=== PATIENT | female | born 1970 | race Caucasian/White ===

== ENCOUNTER 2019-05-07 09:48 | Observation (INO) | payer OTHER ==
[~2019-05-07] VITALS: Ht 170.2 cm; Wt 147.4 kg
[~2019-05-07 09:48] MED LIST: ALBU90I INH; ALBU90OI61 INH; AZIT250 PO; Bactrim Ds Tab1 EACH PO; CEPH500 PO; CYCL10 PO; FURO40 PO; HYDACE5325 PO; IBUP400 PO; Keflex500 MG PO; LEVO750 PO; Metformin HCl1000 MG PO; Metoprolol Tart25 MG PO; NEOPOLHCSU RIGHTEAR; OXYB5 PO; PREDNISONE PO; Percocet 5-3251 EACH PO; SULTRIDS PO; TRAM50 PO; TRAZ50 PO; Zofran Odt8 MG SL
[2019-05-07] MEDS ORDERED: Cymbalta60 MG PO (10:35)
[2019-05-07] MEDS ORDERED: D3-20002000 UNIT PO (10:35)
[2019-05-07 10:52] LABS: BASOPHILS ABSOLUTE AUTO 0.02 K/mm3 (0.00-0.23); BASOPHILS PERCENT AUTO 0 % (0-2); EOSINOPHILS ABSOLUTE AUTO 0.06 K/mm3 (0.00-0.68); EOSINOPHILS PERCENT AUTO 1 % (0-6); IMMATURE GRAN ABSOLUTE AUTO 0.07 K/mm3 (0.00-0.10); IMMATURE GRAN PERCENT AUTO 1 % (0-1); LYMPHOCYTES ABSOLUTE AUTO 2.21 K/mm3 (0.84-5.20); LYMPHOCYTES PERCENT AUTO 25 % (21-46); MONOCYTES ABSOLUTE AUTO 0.78 K/mm3 (0.16-1.47); MONOCYTES PERCENT AUTO 9 % (4-13); Mean Corpuscular HGB 29.1 pg (26.0-34.0); Mean Corpuscular HGB Conc 29.4 g/dL (31.5-36.5); Mean Corpuscular Volume 99 fL (80-100); Mean Platelet Volume 10.9 fL (9.1-12.4); NEUTROPHILS ABSOLUTE AUTO 5.87 K/mm3 (1.96-9.15); NEUTROPHILS PERCENT AUTO 65 % (41-73); NRBC ABSOLUTE 0.16 K/mm3 (0.00-0.02); NRBC Auto 1.8 /100 WBC (0.0-0.2); Platelet Count 201 K/mm3 (150-400); RDW Coefficient Variation 19.3 % (11.7-14.2); RDW Standard Deviation 67.6 fL (35.1-46.3); Red Blood Cell Count 5.15 M/mm3 (3.80-5.20); White Blood Cell Count 9.01 K/mm3 (4.00-11.30)
[2019-05-07 11:08] LABS: Alanine Aminotransfer (ALT/SGP 16 U/L (12-78); Albumin/Globulin Ratio 0.8 (0.8-1.8); Alk Phos 71 U/L (50-136); Anion Gap 4 mmol/L (6-16); Aspartate Aminotrans (AST/SGOT 11 U/L (12-37); Bilirubin, Total 0.4 mg/dL (0.1-1.0); Blood Urea Nitrogen 11 mg/dL (8-24); Bun/Creatinine Ratio 13.9 (12.0-20.0); CO2, Blood 33 mmol/L (21-32); Calcium, Blood 8.8 mg/dL (8.5-10.1); Chloride, Blood 105 mmol/L (98-108); Creatinine, Blood 0.79 mg/dL (0.40-1.00); Glomerular Filtration Rate >60 (60-); Glucose, Blood 113 mg/dL (70-99); Potassium, Blood 4.4 mmol/L (3.5-5.5); Sodium, Blood 142 mmol/L (136-145); Troponin I <0.015 ng/mL (0.000-0.040)
[2019-05-07 17:58] LABS: Source, Urine Clean Catch
[2019-05-07 18:02] LABS: Bilirubin, Urine Neg (Neg); Blood, Urine 1+ (Neg); Glucose Qualitative, Urine Neg (Neg); Ketones, Urine 1+ (Neg); Leukocyte Esterase, Urine 3+ (Neg); Nitrite, Urine Neg (Neg); Protein, Urine Neg (Neg); Urobilinogen, Urine NORM (Normal)
[2019-05-07 18:19] LABS: Appearance, Urine Hazy (Clear); Color, Urine Yellow (P-Yellow)
[2019-05-07 18:24] LABS: Bacteria Many /hpf; Red Blood Cells, Urine Not Seen /hpf (0-2); Squamous Epithelial Cells Many /hpf (Few); White Blood Cells, Urine 25-50 /hpf (0-5)
--- NOTE | 2019-05-07 18:29 | NUR ---
SHIFT SUMMARY PT IS A NEW ADMISSION THIS SHIFT. NO COMPLAINTS OF PAIN OR SHORTNESS OF BREATH AT THIS TIME. PT VOIDING WITHOUT DIFFICULTY. URINE SAMPLE SENT. PT ON 2L OXYGEN VIA NC AND SATS ARE IN 90'S. NO DISTRESS AT THIS TIME. PT HAS NO REQUESTS OR COMPLAINTS AT THIS TIME. CALL LIGHT IN REACH. WILL CONTINUE TO MONITOR AND REPORT TO ONCOMING RN.
--- NOTE | 2019-05-07 18:33 | NUR ---
BLOOD PRESSURES PT HAD BLOOD PRESSURES RECORDED FROM ED AFTER PT WAS TO THE FLOOR AND STAFF ON THIS FLOOR TOOK HER BP. THIS RN CALLED ED AND ASKED THEM TO CHANGE THE TIME TO THE ACCURATE TIME IT WAS TAKEN.
[2019-05-07 18:55] LABS: CPK Creatine Kinase 67 U/L (26-193); Troponin I <0.015 ng/mL (0.000-0.040)
--- NOTE | 2019-05-07 22:45 | NUR ---
WHILE PT WAS ON CPAP THROUGH THE NIGHT, O2 SATS DROPPED DOWN TO THE 60s AT ONE POINT. PT HAD MOVED MASK IN INCOORECT POSITION, NOT ALLOWING FOR ADEQUATE AIRFLOW. MASK POSITION CORRECTED AND PT UP TO 70s. RT CALLED AND O2 TO CPAP WAS RAISED TO 15 L. PT O2 SATS MAINTAINING 88-90% ON CPAP.
[2019-05-08 02:40] LABS: Hematocrit 50.3 % (33.0-51.0); Hemoglobin 14.5 g/dL (11.5-16.0); Mean Corpuscular HGB 29.5 pg (26.0-34.0); Mean Corpuscular HGB Conc 28.8 g/dL (31.5-36.5); Mean Platelet Volume 10.7 fL (9.1-12.4); NRBC ABSOLUTE 0.07 K/mm3 (0.00-0.02); NRBC Auto 0.9 /100 WBC (0.0-0.2); Platelet Count 171 K/mm3 (150-400); RDW Coefficient Variation 19.3 % (11.7-14.2); Red Blood Cell Count 4.92 M/mm3 (3.80-5.20); White Blood Cell Count 7.75 K/mm3 (4.00-11.30)
[2019-05-08 02:41] LABS: Mean Corpuscular Volume 102 fL (80-100)
[2019-05-08 03:02] LABS: CPK Creatine Kinase 45 U/L (26-193); Troponin I <0.015 ng/mL (0.000-0.040)
[2019-05-08 03:18] LABS: Alanine Aminotransfer (ALT/SGP 15 U/L (12-78); Albumin, Blood 2.7 g/dL (3.4-5.0); Albumin/Globulin Ratio 0.7 (0.8-1.8); Alk Phos 62 U/L (50-136); Anion Gap 1 mmol/L (6-16); Aspartate Aminotrans (AST/SGOT 11 U/L (12-37); Bilirubin, Total 0.4 mg/dL (0.1-1.0); Blood Urea Nitrogen 13 mg/dL (8-24); Bun/Creatinine Ratio 13.1 (12.0-20.0); CO2, Blood 38 mmol/L (21-32); Calcium, Blood 8.4 mg/dL (8.5-10.1); Chloride, Blood 105 mmol/L (98-108); Globulin, Blood 3.8 g/dL (2.2-4.0); Glomerular Filtration Rate >60 (60-); Glucose, Blood 102 mg/dL (70-99); Potassium, Blood 4.1 mmol/L (3.5-5.5); Sodium, Blood 144 mmol/L (136-145); Total Protein, Blood 6.5 g/dL (6.4-8.2)
--- NOTE | 2019-05-08 04:02 | NUR ---
bEHAVIOR PT SCREAMING AND CURSING AT STAFF THIS AM. ASSISTED PT TO BATHROOM, WHERE SHE CONTINUED TO CURSE AND YELL AT STAFF. "SHUT THE F UP" PT STATED WHEN REMINDED THIS RN AND THE RENAL DIETITIAN ARE TO BE TREATED WITH RESPECT. ABOUT 10 MINS LATER, PT APOLOGIZED FOR BEHAVIOR.
--- NOTE | 2019-05-08 04:16 | NUR ---
INCREASED OXYGEN DEMANDS PT IS REQUIRING 2-7 L VIA OXYMIZER TO MAINTAINE O2 SATS >90%. WHEN RESTING IN BED, PT CAN BE WEENED DOWN TO 2-3L. HOWEVER, DURING AMBULATION AND AFTER AMBULATION, PT HAS REQUIRED 7L TO RAISE O2 SATS.
--- NOTE | 2019-05-08 06:03 | NUR ---
RT SUGGESTING PT DO SLEEP STUDY. WILL PASS OFF IN DAYSHIFT RN REPORT.
--- NOTE | 2019-05-08 06:13 | NUR ---
SHIFT SUMMARY PT HAS HAD VARYING OXYGEN NEEDS TONIGHT, DEMAND ON ACTIVITY. O2 NEEDS RANGE FROM 2-7 L VIA OXYMIZER, SEE PRIOR NOTE. PT RESTING IN BED AT THIS TIME AN CURRENTLY REQUIRING 4L VIA OXYMIZER TO MAINTAIN O2SATS > 90%. ON CPAP AT NIGHT WITH FREQUENT NEED FOR INCREASE 02 THEN WELL, RT RECOMMENDING SLEEP STUDY. TELE IN PLACE, NSR @ 80, NO ACUTE TELEMETRY EVENTS. SCABS AND ABRASIONS NOTED TO BLE. SKIN FOLDS NOTED TO BE CRACKED/RAW. PT DENIES ANY PAIN. WILL CONT TO MONITOR AND PROVIDE CARE UNTIL PRESUMED BY ONCOMING RN.
--- NOTE | 2019-05-08 12:59 | NUR ---
PT LEFT AMA PT LEFT AMA AT 1300. PT NOT IN STABLE CONDITION. PT HAS BEEN REQUIRING 3L O2 VIA OXIMIZER THROUGHOUT SHIFT. PT UPSET THAT PT DOG WAS ASKED TO LEAVE AFTER BARKING & RUNNING TOWARD STAFF. BARBER CALLED & [facility]ER[facility]. PT STATED THAT WASN'T AN OPTION. DOG BARKED AT DR. MAKING HIM UNABLE TO ASSESS PT. PT STATED THAT SHE WANTS TO LEAVE NOW. WHEN MEAT SOAKER, PRKAASH TRIED TO ACCOMIDATE PT, PT BECAME ARGREE & DEMANDED TO LEAVE THE HOSPITAL NOW. PT WAS EDUCATED BY THIS RN THAT THERE ARE NO BENEFITS TO LEAVING THE HOSPITAL NOW & EDUCATED ON THE RISKS. PT IV REMOVED & INTACT. TAXI CALLED FOR PT. PT WHEELED OUT BY AIDE. DR. NEELY NOTIFIED.
[2019-05-08 14:48] LABS: Adenovirus F 40/41 Not Detected (NOT DETECT); Astrovirus Not Detected (NOT DETECT); Campylobacter Sp Not Detected (NOT DETECT); Cryptosporidium Not Detected (NOT DETECT); Cyclospora Cayetanensis Not Detected (NOT DETECT); E. Coli O157 Not Detected (NOT DETECT); Entamoeba Histolytica Not Detected (NOT DETECT); Enteroaggregative E. coli-EAEC Not Detected (NOT DETECT); Enteropathogenic E. coli-EPEC Not Detected (NOT DETECT); Enterotoxigenic E. coli-ETEC Not Detected (NOT DETECT); Giardia Lamblia Not Detected (NOT DETECT); Norovirus GI/GII Not Detected (NOT DETECT); Plesiomonas Shigelloides Not Detected (NOT DETECT); Rotavirus A Not Detected (NOT DETECT); Salmonella Sp Not Detected (NOT DETECT); Sapovirus Not Detected (NOT DETECT); Shiga Toxin-prod E. coli-STEC Not Detected (NOT DETECT); Shigella/Enteroin E. coli-EIEC Not Detected (NOT DETECT); Vibrio Cholerae Not Detected (NOT DETECT); Vibrio Sp Not Detected (NOT DETECT); Yersinia Enterocolitica Not Detected (NOT DETECT)
--- NOTE | 2019-05-09 09:07 | NUR ---
PROVIDER CORRECTION FOR HOME O2 EVAL ORDER.
== END 2019-05-08 13:01 | disposition left against medical advice (07) ==
LOC: ER 09:48 → MEDS 09:49
PROVIDERS: Emergency Medicine; ADMIT Internal Medicine
DX: J81.0 Acute pulmonary edema (principal); J96.01 Acute respiratory failure with hypoxia; E66.01 Morbid (severe) obesity due to excess calories; F17.210 Nicotine dependence, cigarettes, uncomplicated; I10 Essential (primary) hypertension; Z59.0 Homelessness; Z79.899 Other long term (current) drug therapy; Z88.0 Allergy status to penicillin; Z68.43 Body mass index [BMI] 50.0-59.9, adult
CPT/HCPCS: 0097U; 36415; 71046; 80053; 81001; 82550; 83880; 84145; 84484; 85025; 85027; 87077; 87086; 87186; 93005; 93010; 94640; 94660; 94762; 96365; 96372; 96374; 96375; 96376; 99285-25; C8929; G0378; J0696; J1650; J1940; Q9957

== ENCOUNTER 2019-05-08 17:26 | Emergency (ER) | payer OTHER ==
[~2019-05-08] VITALS: Ht 170.2 cm; Wt 204.1 kg
[~2019-05-08 17:26] MED LIST changes: +Cymbalta60 MG PO; +D3-20002000 UNIT PO
== END 2019-05-08 18:00 | disposition home or self-care (01) ==
LOC: ER 17:26
DX: F41.9 Anxiety disorder, unspecified (principal); F17.210 Nicotine dependence, cigarettes, uncomplicated; Z59.0 Homelessness; Z88.0 Allergy status to penicillin; Z79.899 Other long term (current) drug therapy
CPT/HCPCS: 99283

== ENCOUNTER 2019-05-26 07:07 | Inpatient (IN) | payer OTHER ==
[~2019-05-26] VITALS: Ht 165.1 cm; Wt 226.0 kg
[2019-05-26 07:29] LABS: PCO2 Arterial 105 mmHg (35-45); PO2 Arterial 49.2 mmHg (80-100); pH Blood Arterial 7.14 (7.35-7.45)
[2019-05-26 07:40] LABS: Calcium, Ionized (POC) 1.06 mmol/L (1.10-1.46); Chloride (POC) 104 mmol/L (98-108); Creatinine (POC) 1.3 mg/dL (0.6-1.0); Glucose (ISTAT POC) 144 mg/dL (70-99); Hemoglobin (POC) 17.3 g/dL (12.0-16.0); Potassium (POC) 4.3 mmol/L (3.5-5.5); Sodium (POC) 141 mmol/L (135-148); Total CO2 (POC) 32 mmol/L (21-32)
[2019-05-26 08:02] LABS: BASOPHILS ABSOLUTE AUTO 0.02 K/mm3 (0.00-0.23); BASOPHILS PERCENT AUTO 0 % (0-2); EOSINOPHILS ABSOLUTE AUTO 0.09 K/mm3 (0.00-0.68); EOSINOPHILS PERCENT AUTO 1 % (0-6); Hemoglobin 14.7 g/dL (11.5-16.0); IMMATURE GRAN ABSOLUTE AUTO 0.02 K/mm3 (0.00-0.10); IMMATURE GRAN PERCENT AUTO 0 % (0-1); LYMPHOCYTES ABSOLUTE AUTO 2.43 K/mm3 (0.84-5.20); LYMPHOCYTES PERCENT AUTO 28 % (21-46); MONOCYTES ABSOLUTE AUTO 0.86 K/mm3 (0.16-1.47); MONOCYTES PERCENT AUTO 10 % (4-13); Mean Corpuscular HGB 29.3 pg (26.0-34.0); Mean Corpuscular HGB Conc 27.7 g/dL (31.5-36.5); Mean Corpuscular Volume 106 fL (80-100); Mean Platelet Volume 11.6 fL (9.1-12.4); NEUTROPHILS PERCENT AUTO 61 % (41-73); NRBC ABSOLUTE 0.11 K/mm3 (0.00-0.02); NRBC Auto 1.3 /100 WBC (0.0-0.2); Platelet Count 186 K/mm3 (150-400); RDW Coefficient Variation 20.2 % (11.7-14.2); RDW Standard Deviation 76.9 fL (35.1-46.3); Red Blood Cell Count 5.02 M/mm3 (3.80-5.20); White Blood Cell Count 8.72 K/mm3 (4.00-11.30)
[2019-05-26 08:09] LABS: Albumin, Blood 3.1 g/dL (3.4-5.0); Albumin/Globulin Ratio 0.8 (0.8-1.8); Bilirubin, Total 0.4 mg/dL (0.1-1.0); Bun/Creatinine Ratio 19.2 (12.0-20.0); Calcium, Blood 8.6 mg/dL (8.5-10.1); Creatine Kinase MB 1.9 ng/mL (0.0-3.6); Creatine Kinase MB Index 2.8 (0.0-4.0); Creatinine, Blood 1.25 mg/dL (0.40-1.00); Globulin, Blood 3.8 g/dL (2.2-4.0); Potassium, Blood 4.4 mmol/L (3.5-5.5); Total Protein, Blood 6.9 g/dL (6.4-8.2); Troponin I 0.161 ng/mL (0.000-0.040)
[2019-05-26 08:10] LABS: PCO2 Arterial 88.9 mmHg (35-45); PO2 Arterial 98.6 mmHg (80-100)
--- NOTE | 2019-05-26 10:03 | NUR ---
REPORT FROM JAYSON GOMEZ IN ED.
--- NOTE | 2019-05-26 12:30 | NUR ---
FIO2 INCREASED TO 55%
--- NOTE | 2019-05-26 13:40 | NUR ---
RESP THERAPIST TO ROOM FOR REPEAT ABG
[2019-05-26 13:47] LABS: PCO2 Arterial 72.3 mmHg (35-45); PO2 Arterial 96.4 mmHg (80-100); pH Blood Arterial 7.28 (7.35-7.45)
--- NOTE | 2019-05-26 13:52 | NUR ---
LAB AT BEDSIDE FOR PROCALCITONIN DRAW.
--- NOTE | 2019-05-26 14:16 | NUR ---
ECHO IN PROCESS. PT MEDICATED WITH HEPARIN PER EMAR.
--- NOTE | 2019-05-26 14:20 | NUR ---
ECHO COMPLETE. NO EFFUSION, EF 65%
--- NOTE | 2019-05-26 15:05 | NUR ---
ASSUMED CARE REPORT FROM PATRICIA NICOLE. MORBIDLY OBESE PATIENT WITH BIPAP MASK ON. READJUSTED MASK FOR AIR LEAK GREATER THAN 100. WARM BLANKETS PROVIDED PER PATIENT REQUEST, BED ADJUSTED TO REPOSITION.
--- NOTE | 2019-05-26 15:32 | NUR ---
MD VISIT DR. HILARIO IN
--- NOTE | 2019-05-26 15:34 | NUR ---
Echocardiogram completed.
--- NOTE | 2019-05-26 15:40 | NUR ---
LUNG SOUNDS ARE DIMINISHED. NO WHEEZES NOTED.
--- NOTE | 2019-05-26 16:27 | NUR ---
BREAK FROM BIPAP WITH 2L O2 VIA NC. ORAL CARE PERFORMED, SIPS OF WATER. FACE WASHED. PATIENT SAYS SHE HAS NOT BEEN WEARING HER CPAP MACHINE
--- NOTE | 2019-05-26 16:29 | NUR ---
FIO2 TITRATED TO 45%
--- NOTE | 2019-05-26 17:41 | NUR ---
PATIENT BELONGINGS HAD WALLET WITH SLADE. $730 VERIFIED BY PATRICIA SALGADO
--- NOTE | 2019-05-26 18:46 | NUR ---
SECURITY COLLECTED WALLET. TICKET IN CHART
--- NOTE | 2019-05-26 19:11 | NUR ---
REPORT GIVEN TO JENNIFER Salcedo RN
--- NOTE | 2019-05-26 20:37 | NUR ---
START OF SHIFT: REPORT FROM LOUISE GOMEZ. PT SLEEPING WEARING BIPAP-SETTINGS , FiO2 45%, RATE 14. ASSESSEMENT, PT AWAKENED SLOWLY TO RN CALLING PT NAME. PT MUMBLES INCOHERENTLY. PT GIVEN BREAK OFF BIPAP (PLACED ON HI-MYRTLE ON 2L). PT WITH AUDIBLE WHEEZE AND COARSENESS, RHONCHI CLEARED WITH COUGH. PT GIVEN ORAL CARE. PT SATS DROPPED TO 72% DURING THIS FEW MINUTES PROCESS. PT PLACED BACK ON BIPAP AND ENCOURAGED TO COUGH AND DEEP BREATH. PT GIVEN CLIP BOARD TO WRITE OUT WHAT PT WAS TRYING TO MUMBLE. PT NOT ABLE TO WRITE OUT. BUT PT RUBBED HER TUMMY AND NODDED HEAD TO FEELING HUNGRY. PT MUMBLED, "BRU" AND NODDED TO BROTHER KNOWING WHERE PT IS. PT UPDATED ON WHAT INFORMATION WAS GIVEN IN REPORT REGARDING PT'S SON AND DOG. PT RETURNED TO SLEEPING ONCE RN LEFT BEDSIDE. BIPAP FiO2 INCREASED TO 50%, SATS CURRENTLY 88%. BP 156/67, HR 70'S NSR. WILL CONTINUE TO MONITOR.
--- NOTE | 2019-05-26 21:31 | NUR ---
BRADYCARDIC EPISODE: THIS RN IN ROOM CHARTING. AT APPRX 2054 PT SLEEPING. PT HR LYNDSAY DOWN TO 49, PT NOT RESPONSIVE AT THE TIME. SEO ANALYST TO ROOM AND NOTIFIED HOSPITALIST. PT AWAKENED SLIGHTLY TO AGGRESSIVE STERNAL RUB. PT DENIED CP, NAUSEA NOR SOB. MEKA HOSPITALIST TO ROOM WHO SPOKE WITH ADMITTING MD, DR. HILARIO WHO AT THIS TIME DID NOT WANT EKG, DID ORDER ABG AND WILL MAKE FURTHER ORDERS ONCE ABG COMPLETE. DURING THIS TIME PT BECAME MORE RESPONSIVE AND HR RETURNED TO 70'S NSR. AT TIME OF INCODENT BP 170'S SYSTOLIC, CURRENTLY 152/65. NO FURTHER ORDERS AT THIS TIME. WILL CONTINUE TO MONITOR.
--- NOTE | 2019-05-26 21:47 | NUR ---
RT AT BEDSIDE FOR ABG AND BREATHING TX.
[2019-05-26 21:56] LABS: PO2 Arterial 69.7 mmHg (80-100); pH Blood Arterial 7.34 (7.35-7.45)
--- NOTE | 2019-05-26 22:49 | NUR ---
ABG/TROPONIN: ABG pH 7.34, pCo2 66.0, HcO3 30.3; TROPONIN 0.157 NOTED AND IMPROVED FROM PREVIOUS. PT BIPAP SETTINGS NOW /, FiO2 60%, SATS REMAINING >90%, PT HR OCCASIONALLY LYNDSAY TO 49 BUT RETURNS TO 60'S-70'S.
--- NOTE | 2019-05-27 01:40 | NUR ---
YELLOW SPUTUM: PT COUGHING WITH BIPAP. BIPAP REMOVED, N/C HI MYRTLE PLACED. PT GIVEN ORAL CARE, THEN PT COUGHED PRODUCING AMLL AMOUNT OF THICK YELLOW SPUTUM. BIPAP BACK ON PT.
[2019-05-27 03:50] LABS: Alanine Aminotransfer (ALT/SGP 15 U/L (12-78); Albumin, Blood 2.8 g/dL (3.4-5.0); Albumin/Globulin Ratio 0.7 (0.8-1.8); Alk Phos 62 U/L (50-136); Anion Gap 1 mmol/L (6-16); Aspartate Aminotrans (AST/SGOT 10 U/L (12-37); Bilirubin, Total 0.6 mg/dL (0.1-1.0); Blood Urea Nitrogen 21 mg/dL (8-24); Bun/Creatinine Ratio 20.6 (12.0-20.0); CO2, Blood 35 mmol/L (21-32); Calcium, Blood 8.6 mg/dL (8.5-10.1); Chloride, Blood 107 mmol/L (98-108); Creatinine, Blood 1.02 mg/dL (0.40-1.00); Globulin, Blood 3.8 g/dL (2.2-4.0); Glomerular Filtration Rate >60 (60-); Glucose, Blood 124 mg/dL (70-99); Potassium, Blood 5.1 mmol/L (3.5-5.5); Sodium, Blood 143 mmol/L (136-145); Total Protein, Blood 6.6 g/dL (6.4-8.2)
--- NOTE | 2019-05-27 10:30 | NUR ---
TRANSFER TO ICU 11: REPORT GIVEN, AWAITING RT TO MOVE PT WITH BIPAP IN PLACE.
[2019-05-27 15:01] LABS: U Amphetamine Screen Not Detected; U Barbituate Screen Not Detected; U Benzodiazapine Screen Not Detected; U Buprenorphine Screen Not Detected; U Cannabinoids Screen Not Detected; U Cocaine Screen Not Detected; U Methadone Screen Not Detected; U Methamphetamine Screen Not Detected; U Opiates Screen Not Detected; U Oxycodone Screen Not Detected; U Phencyclidine Screen Not Detected; U Propoxyphene Screen Not Detected
--- NOTE | 2019-05-27 20:00 | NUR ---
TRANSFER NOTED AND SHIFT SUMMARY RECEIVED REPORT FROM PATRICIA MCKEON IN ICU. PT TO ROOM AT 1048 VIA BED. PT ORIENTED TO ROOM AND CALL LIGHT. PT A&Ox2, CALM AND COOPERATIVE WITH CARE. PT RESTING IN BED DURING SHIFT, REPOSITION FOR COMFORT, PT REFUSING AT TIMES. PT REPROTS PAIN IN LEFT HIP, MEDICATED x1 WITH TYLENOL WITH POSTIIVE RESULTS AND REPOSITION OFF LEFT SIDE. PT ON BIPAP THIS AM, AT 55%, SPO2 93-95% ON BIPAP, ATTEMTPED BREAK ON 4L O2 VIA NC, PT MAINTAINED 92% FOR APPROX 1 MIN AND DESATURATED TO 87-88, TITRATED TO 5L O2 VIA NC, WITH NO RESPONSE AND BIPAP REPLACED. RT ATTEMPTED AGAIN THIS EVENING, PT ON 4L O2 VIA NC 90-92%. PT DENIES SOB, BREATHING SHALLOW, UNEVEN, BUT UNLABORED. PT DENIES NAUSEA, REQUESTS WATER AND FOOD T/O SHIFT, DINNER TRAY ORDERED, PT APPEARS TO HAVE TOLERATED WELL. PT RECEIVING IV STEROIDS AND LASIX. VSS. NO OTHER ACUTE CHANGES NOTED DURING SHIFT.
[2019-05-28 04:10] LABS: BASOPHILS ABSOLUTE AUTO 0.01 K/mm3 (0.00-0.23); BASOPHILS PERCENT AUTO 0 % (0-2); EOSINOPHILS PERCENT AUTO 0 % (0-6); Hematocrit 51.6 % (33.0-51.0); Hemoglobin 14.8 g/dL (11.5-16.0); IMMATURE GRAN ABSOLUTE AUTO 0.03 K/mm3 (0.00-0.10); IMMATURE GRAN PERCENT AUTO 0 % (0-1); LYMPHOCYTES ABSOLUTE AUTO 0.81 K/mm3 (0.84-5.20); LYMPHOCYTES PERCENT AUTO 12 % (21-46); MONOCYTES PERCENT AUTO 6 % (4-13); Mean Corpuscular HGB 28.8 pg (26.0-34.0); Mean Corpuscular HGB Conc 28.7 g/dL (31.5-36.5); Mean Platelet Volume 11.5 fL (9.1-12.4); NEUTROPHILS ABSOLUTE AUTO 5.78 K/mm3 (1.96-9.15); NEUTROPHILS PERCENT AUTO 82 % (41-73); NRBC ABSOLUTE 0.04 K/mm3 (0.00-0.02); NRBC Auto 0.6 /100 WBC (0.0-0.2); Platelet Count 163 K/mm3 (150-400); RDW Coefficient Variation 19.1 % (11.7-14.2); RDW Standard Deviation 69.2 fL (35.1-46.3); Red Blood Cell Count 5.14 M/mm3 (3.80-5.20); White Blood Cell Count 7.03 K/mm3 (4.00-11.30)
[2019-05-28 04:11] LABS: Mean Corpuscular Volume 100 fL (80-100)
[2019-05-28 04:32] LABS: Bun/Creatinine Ratio 27.9 (12.0-20.0); Creatinine, Blood 1.11 mg/dL (0.40-1.00); Potassium, Blood 4.5 mmol/L (3.5-5.5)
--- NOTE | 2019-05-28 05:26 | NUR ---
END OF SHIFT SUMMARY PT CONTINUES W/ BIPAP 55%, GARCIA PATENT AND DRAINING, NC 5L BREAKS, AND STAFF TURNING. PT TOLERATED A 3 HOUR BREAK FROM BIPAP ON NC BUT WAS THEN STARTING TO GET DROWSY AND STATED FEELING CONFUSED. PT HAS BEEN ON BIPAP SINCE THAT POINT AT 2230. PT BEING TURNED, UPON TURNING POTENTIAL PRESSURE ULCER FOUND AT THE L POPLITEAL FOSSA, PICTURES TAKEN, LOTION APLLIED AND PILLOWCASE INSERTED BETWEEN FOLDS. BED SHEET PRESENT IN PANUS/FOLDS AREA. SKIN CARE PROVIDED TO POSTERIOR AREA OF PT. VSS THIS SHIFT. SON VISITED WITH [employer] WORKER FOR AWHILE, PT BECAME VERY UPSET ABOUT THE SITUATION BUT HAS SINCE RECOUPERATED. PT HAS BEEN ABLE TO COMMUNICATE NEEDSN APPROPRIATELY AND USES CALL LIGHT WHEN NEEDED. HAS TOLERATED THE BIPAP WELL. WILL CONTINUE TO MONITOR PT UNTIL SHIFT CHANGE.
--- NOTE | 2019-05-28 13:32 | NUR ---
PT O2 SATURATS 87-89% ON 5L O2 VIA NC, PT REPROTS SOB AND FEELING TIRED. PLACED BIPAP, O2 92-95% ON BIPAP AT 55%
--- NOTE | 2019-05-28 15:42 | NUR ---
PT FOUND IN BED IN RESPIRATORY DISTRESS, PT RED IN FACE, CONSTANTLY COUGHING. PT FRIEND AT BEDSIDE CALLED RN INTO ROOM. SUCTIONS AT BED SIDE, CLEARED AIRWAY, FOOD REMOVED FROM MOUTH. PT O2 SATURATIONS 87-89 %, PT COUGHING DECREASED, BIPAP PLACED. LS COARSE/DIM T/O. NOTIFIED DR HILARIO, NO NEW ORDERS, WILL CONTINUE TO MONITOR.
--- NOTE | 2019-05-28 18:22 | NUR ---
SHIFT SUMMARY PT A&Ox4. ANXIOUS AT TIMES, COOPERATIVE WITH CARE. PT RESTING IN BED, REPOSITIONED PT ALLOWED, LIFT USED. PT ON BEDREST. PT REPORTS CRAMPING PAIN, MEDICATED x1 WITH TYLENOL WITH POSTIVE REPORTS. PT ON 5L O2 VIA NC FOR MAJORITY OF SHIFT, ON BIPAP AT 55%, LS COARSE. PT HAD COUGHING EPISODE, WITH FOOD IN MOUTH, CLEARED AIRWAY WITH SUCTIONS AND DR NOTIFIED. BED BATH COMPLETED. GARCIA IN PLACE AND PATENT. PT RECEIVED IV LASIX. ELEVATED BP, OTHER VSS. NO OTHER ACUTE CHANGES NOTED DURING SHIFT. WILL CONTINUE TO MONITOR UNTIL REPORT GIVEN TO ONCOMING RN.
[2019-05-29 04:31] LABS: Bun/Creatinine Ratio 32.1 (12.0-20.0); Creatinine, Blood 1.06 mg/dL (0.40-1.00); Potassium, Blood 4.3 mmol/L (3.5-5.5)
--- NOTE | 2019-05-29 05:05 | NUR ---
END OF SHIFT SUMMARY NO ACUTE CHANGES THIS SHIFT. VSS. PT RECEIVED BED BATH PREV SHIFT. PT BEING TURNED. HAS TOLERATED BIPAP ALL NIGHT WITH SPO2 95%. PT CONTINUES TO BE AXO, STATES IS SEEING THINGS LESS THE MORE SHE USES BIPAP. OTHERWISE, PT HAW BEEN LAYING IN BED QUIETLY RESTING. WILL CONTINUE TO MONITOR PT UNTIL SHIFT CHANGE.
--- NOTE | 2019-05-29 13:08 | NUR ---
Spiritual care/advance directive education visit conducted. Patient openly shares that she is homeless, that she has a special needs son who is in foster care while she is in the hospital, that she has a mother who is at home on hospice and that she has quincy in God. Patient admits to being very stressed out about her mom and about finding a good living situation for herself and her son. I listen empathically, normalize patient experience, reinforce helpful attitudes and practices, encourage self-care and provide pastoral counseling program leader and prayer. Patient responds well and shows signs of restored quincy. I will continue to remain available to patinet and family
--- NOTE | 2019-05-29 17:10 | NUR ---
SHIFT SUMMARY PT RESTING IN BED THIS AM. ALERT AND ORIENTED X3. DENIES PAIN TODAY. LUNG SOUNDS DIMINISHED THROUGHOUT, NSR RATE 66 PER TELEMETRY. REDNESS NOTED UNDER PANNUS AND TO BACK OF LEFT KNEE. PT HAD BM X2 TODAY, STOOL SOFTENER HELD TODAY. PT STOOD AT BEDSIDE WITH THERAPY. PT IN RECLINER THIS AFTERNOON AND TOLERATING WELL. [facility] HERE TO VISIT PT, EARL FROM [facility] STATES THAT PT CAN HAVE A ROOM AT THE [facility] AT DISCHARGE. WILL CONTINUE TO MONITOR.
[2019-05-30 04:44] LABS: Anion Gap 4 mmol/L (6-16); Blood Urea Nitrogen 33 mg/dL (8-24); CO2, Blood 38 mmol/L (21-32); Calcium, Blood 8.8 mg/dL (8.5-10.1); Chloride, Blood 98 mmol/L (98-108); Creatinine, Blood 1.03 mg/dL (0.40-1.00); Glomerular Filtration Rate >60 (60-); Glucose, Blood 103 mg/dL (70-99); Magnesium, Blood 1.8 mg/dL (1.6-2.4); Sodium, Blood 140 mmol/L (136-145)
--- NOTE | 2019-05-30 08:10 | NUR ---
END OF SHIFT SUMMARY NO ACUTE CHANGES THIS SHIFTT. VSS. PT REMAINS DOING WELL WITH BIPAP 22/16 45% WHEN ASLEEP AND 4LNC WHEN AWAKE. PT HAD 2BMS THIS SHIFT. GARCIA REMAINS PATENT AND DRAINING. PT HAS BEEN CLEANED AND BEEN TURNED. BACKSIDE CLEAR OF BREAKDOWN CURRENTLY. PANUS AND L LEG ULCER SHOW IMPROVEMENT. PT CONTINUES TO BE AFEBRILE. OTHERWISE, PT HAS USED CALL LIGHT APPROPRIATELY. MENTATION CONTINUES TO IMPROVE WITH LESS AND LESS EFFECTS OF HYPERCAPNIA (HALLUCINATIONS). REPORT GIVEN TO ONCOMING RN.
--- NOTE | 2019-05-30 14:00 | NUR ---
TRANSFER NOTE PT RESTING IN RECLINER THIS AM. ALERT AND ORIENTED X3. DENIES PAIN TODAY. LUNG SOUNDS DIMINISHED THROUGHOUT, NSR RATE 64 PER TELEMETRY. REDNESS NOTED UNDER PANNUS AND TO BACK OF LEFT KNEE, IMPROVING PER PATIENT. PT UP TO BEDSIDE COMMODE WITH 1-2 PERSON ASSIST. 1335 PT RADHA [place]'[facility] PER ORDERS. CHAPO CARE COMPLETE.
--- NOTE | 2019-05-30 14:08 | NUR ---
PT STABLE FOR TRANSFER TO MEDICAL FLOOR. REPORT CALLED TO EDILMA GOMEZ ON MEDICAL FLOOR. PT TO BE TRANSFERED VIA BARIATIC BED TO MEDICAL FLOOR WITH BELONGINGS.
--- NOTE | 2019-05-30 16:50 | NUR ---
TRANSFER PATIENT TRANSFERRED TO MEDICAL FLOOR AT AROUND 1530. PT ON 2L O2 VIA NC, PT DENIES SOB, PAIN, NAUSEA. SHE WAS INCONTINENT OF BLADDER AND BOWEL WITH A SMALL LOOSE STOOL. SHE IS ABLE TO AMBULATE TO BATHROOM WITH CRUTCHES AND STANDBY ASSIST FOR A SHOWER. PATIENT REQUESTED A REGULAR BED INSTEAD OF BARIATRIC TO BE EASIER FOR HER TO GET IN AND OUT OF. BED CHANGED. WILL CONTINUE TO MONITOR.
--- NOTE | 2019-05-31 04:58 | NUR ---
SHIFT SUMMARY: A/Ox3. Communicating needs. Inontinent of urine tonight. Sleep study performed by RT during the night. 02 sats ranging from 82-92% both with and without 02. Bipap off tonight for the sleep study. Pt up amb in room with FWW. Needed reminder to call for staff assistance with t/f's. Tele leads d/c'd as ordered. Slept intermittently during the night. Call light in reach.
[2019-05-31 05:21] LABS: PCO2 Arterial 64.2 mmHg (35-45); PO2 Arterial 64.4 mmHg (80-100); pH Blood Arterial 7.46 (7.35-7.45)
[2019-05-31 06:19] LABS: Anion Gap 5 mmol/L (6-16); Blood Urea Nitrogen 27 mg/dL (8-24); Bun/Creatinine Ratio 27.1 (12.0-20.0); CO2, Blood 39 mmol/L (21-32); Calcium, Blood 8.8 mg/dL (8.5-10.1); Chloride, Blood 96 mmol/L (98-108); Glomerular Filtration Rate >60 (60-); Glucose, Blood 85 mg/dL (70-99); Potassium, Blood 3.7 mmol/L (3.5-5.5); Sodium, Blood 140 mmol/L (136-145)
--- NOTE | 2019-05-31 15:47 | NUR ---
Spiritual care visit conducted. Patoral associate counsel and prayer provided. Patient responded well. I will continue to remain available to patient and family
--- NOTE | 2019-05-31 18:30 | NUR ---
SHIFT SUMMARY NO ACUTE CHANGES WITH PATIENT CONDITION THIS SHIFT. PATIENT CAN AMBULATE TO BATHROOM WITH CRUTCHES WITH SBA. WEARING 1L 02. CONT PULSE OX CONNECTED WHEN PATIENT IN BED, SPO2 RANGING FROM 90-95%. PATIENT HAS SOME URGENCY AND SOME INCONTINENCE ON WAY TO BATHROOM. MANAGER OF CASE MANAGEMENT AND [employer] WORKER MET WITH PATIENT, SEE THEIR NOTES. WAITING FOR INSURANCE APPROVAL FOR BIPAP.
[2019-06-01 05:25] LABS: PCO2 Arterial 57.3 mmHg (35-45); PO2 Arterial 64 mmHg (80-100); pH Blood Arterial 7.46 (7.35-7.45)
[2019-06-01 05:45] LABS: Anion Gap 5 mmol/L (6-16); Blood Urea Nitrogen 20 mg/dL (8-24); Bun/Creatinine Ratio 21.7 (12.0-20.0); CO2, Blood 36 mmol/L (21-32); Calcium, Blood 8.8 mg/dL (8.5-10.1); Chloride, Blood 97 mmol/L (98-108); Creatinine, Blood 0.92 mg/dL (0.40-1.00); Glomerular Filtration Rate >60 (60-); Glucose, Blood 96 mg/dL (70-99); Sodium, Blood 138 mmol/L (136-145)
--- NOTE | 2019-06-01 05:46 | NUR ---
AWAKE AND UP TO THE BATHROOM AT INTERVALS THIS SHIFT TO VOID, CURRENTLY BEING DIURESED. INCONT OF URINE A FEW TIMES WELL, VOCED FRUSTRATION, FRUSTRATIONS ACKNOWLEDGED. CALL LIGHT IN REACH.
[2019-06-01] MEDS ORDERED: TORSE20 PO (11:21)
--- NOTE | 2019-06-01 14:52 | NUR ---
PATIENT DISCHARGE: PATIENT DISCHARGED TO HOME THIS SHIFT. MEDICATION RECONCILIATION COMPLETED; MED LIST FAXED TO [facility]. DISCHARGE EDUCATION COMPLETED WITH PATIENT. PATIENT TRANSPORTED TO EXIT BY [facility] WITH WHEELCHAIR AT 1450. PATIENT DEPARTED [facility] VIA [facility] TRANSPORT.
== END 2019-06-01 14:50 | disposition home or self-care (01) | DRG 291 ==
LOC: ER 07:07 → ICUW 09:18 → ICUE 10:23 → PCU 05-27 10:45 → MEDS 05-30 15:30 → ENPENDDIS 06-01 10:41 → MEDS 06-01 14:50
PROVIDERS: Emergency Medicine; Internal Medicine; Nurse Practitioner Acute Care; ADMIT Hospitalist
PROC: 5A09357 Assistance with Respiratory Ventilation, Less than 24 Consecutive Hours, Continuous Positive Airway Pressure (ICD-10-PCS; principal; 2019-05-26)
DX: I11.0 Hypertensive heart disease with heart failure (principal); J96.21 Acute and chronic respiratory failure with hypoxia; J96.22 Acute and chronic respiratory failure with hypercapnia; G92 Toxic encephalopathy; I50.31 Acute diastolic (congestive) heart failure; Z68.45 Body mass index [BMI] 70 or greater, adult; E66.2 Morbid (severe) obesity with alveolar hypoventilation; M19.90 Unspecified osteoarthritis, unspecified site; I25.2 Old myocardial infarction; F17.210 Nicotine dependence, cigarettes, uncomplicated; Z91.19 Patient's noncompliance with other medical treatment and regimen; J45.909 Unspecified asthma, uncomplicated; Z59.0 Homelessness
CPT/HCPCS: 36415; 36600; 51702; 51703; 71045; 80047; 80048; 80053; 82550; 82553; 82803; 82947; 83735; 83880; 84145; 84484; 85014; 85025; 93005; 93010; 93308; 94640; 94644; 94660; 94664; 94760; 94762; 96361-59; 96374-59; 97110; 97116; 97162; 97166; 97530; 97535; 98960; 99285-25; 99407; A9270; J1644; J1940; J2310; J2930; J7030; J7512

== ENCOUNTER 2019-06-03 15:07 | Inpatient (IN) | payer OTHER ==
[~2019-06-03] VITALS: Ht 170.2 cm; Wt 204.6 kg
[~2019-06-03 15:07] MED LIST changes: +TORSE20 PO
[2019-06-03] MEDS ORDERED: THERA-D2000 UNIT PO (19:03)
[2019-06-03] MEDS ORDERED: Glucophage1000 MG PO (19:03)
[2019-06-03] MEDS ORDERED: OXYB5 PO (19:04)
[2019-06-03] MEDS ORDERED: AMLO10 PO (19:05)
[2019-06-03] MEDS ORDERED: METO25 PO (19:05)
[2019-06-03 19:20] LABS: BASOPHILS ABSOLUTE AUTO 0.02 K/mm3 (0.00-0.23); BASOPHILS PERCENT AUTO 0 % (0-2); EOSINOPHILS ABSOLUTE AUTO 0.03 K/mm3 (0.00-0.68); EOSINOPHILS PERCENT AUTO 0 % (0-6); Hemoglobin 16.6 g/dL (11.5-16.0); IMMATURE GRAN ABSOLUTE AUTO 0.04 K/mm3 (0.00-0.10); IMMATURE GRAN PERCENT AUTO 0 % (0-1); LYMPHOCYTES ABSOLUTE AUTO 2.15 K/mm3 (0.84-5.20); LYMPHOCYTES PERCENT AUTO 20 % (21-46); MONOCYTES ABSOLUTE AUTO 1.83 K/mm3 (0.16-1.47); MONOCYTES PERCENT AUTO 17 % (4-13); Mean Corpuscular HGB 28.7 pg (26.0-34.0); Mean Corpuscular HGB Conc 30.2 g/dL (31.5-36.5); NEUTROPHILS ABSOLUTE AUTO 6.71 K/mm3 (1.96-9.15); NEUTROPHILS PERCENT AUTO 62 % (41-73); Platelet Count 111 K/mm3 (150-400); RDW Coefficient Variation 18.9 % (11.7-14.2); RDW Standard Deviation 63.5 fL (35.1-46.3); Red Blood Cell Count 5.78 M/mm3 (3.80-5.20); White Blood Cell Count 10.78 K/mm3 (4.00-11.30)
[2019-06-03 19:21] LABS: Mean Corpuscular Volume 95 fL (80-100)
[2019-06-03 19:31] LABS: Albumin/Globulin Ratio 0.7 (0.8-1.8); Bilirubin, Total 1.5 mg/dL (0.1-1.0); Bun/Creatinine Ratio 18.1 (12.0-20.0); Calcium, Blood 9.1 mg/dL (8.5-10.1); Creatinine, Blood 1.05 mg/dL (0.40-1.00); Globulin, Blood 4.2 g/dL (2.2-4.0); Potassium, Blood 3.5 mmol/L (3.5-5.5); Total Protein, Blood 7.2 g/dL (6.4-8.2)
--- NOTE | 2019-06-03 21:15 | NUR ---
arrival to floor room 327 at 2054. patient arrived to floor was unable to transfer to bed without assist of transfer lift. A& O X4, pain complaints right hip. states she hasn't taken any of her medications since hospitalization discharge on 06/01. metoprolol 25mg and oxycodone given 1around 1824 for pain and htn in ER. RT here to eval CPAP. will give pain med as requested kenneth.
--- NOTE | 2019-06-04 01:08 | NUR ---
PT IS ON HOME CPAP SETTING 5-25, PT SATS HAVE BEEN DECREASING IN TO THE MID 80'S, HAVE 02 FLUSHED OUT TO 15L, I HAVE PLACED A CHIN STRAP ON PT, PT IS REFUSING TO LET ME PUT A FULL FACE MASK ON. ON 15L SATS 89% -90%.
--- NOTE | 2019-06-04 07:42 | NUR ---
WEATHERIZATION INSTALLER SUMMARY. PATIENT SLEPT POORLY MOST OF NIGHT. UNABLE TO MOVE DUE TO ANXIETY AND PAIN. LEFT HIP AND LEG. MOVED TO CEILING LIFT ROOM AROUND 0400. INCONT OF VERY STRONG SMELLING YELLOWING BROWN URINE. REQUIRED ASSIST OF 6 STAFF WITH LIFT DUE TO PATIENTS ANXIETY AND 'STIFFINING UP' WHILE STAFF ATTEMPTED TO CHANGE PATIENT AND BEDDING. 02 SAAT DONTINUOUSLY DROPPING TO MID 80'S ON CPAP. SEE RT NOTE FOR SPECIFICS ON OXYGENATION. SATURATION STAYED UP (88-91) WHEN PATIENT AWAKE ON 3 LITERS. SEVERAL SOCIAL CONCERNS WITH HOMELESSNESS, WORRIED ABOUT YOUNG SON, ETC. ONCOMING DAY RN INFORMED
[2019-06-04 10:41] LABS: C-REACTIVE PROTEIN, EXT RANGE >19.000 mg/dL (0.000-0.300)
[2019-06-04 13:39] LABS: Source, Urine Catheter
[2019-06-04 13:42] LABS: Blood, Urine 3+ (Neg); Glucose Qualitative, Urine Neg (Neg); Ketones, Urine 1+ (Neg); Leukocyte Esterase, Urine 3+ (Neg); Nitrite, Urine Pos (Neg); Protein, Urine 3+ (Neg); Urobilinogen, Urine 3+ (Normal)
[2019-06-04 13:46] LABS: Appearance, Urine Cloudy (Clear); Bilirubin, Urine 1+ (Neg); Color, Urine Orange (P-Yellow)
[2019-06-04 13:49] LABS: Bacteria Many /hpf; Squamous Epithelial Cells Rare /hpf (Few); White Blood Cells, Urine TNTC /hpf (0-5)
--- NOTE | 2019-06-04 19:22 | NUR ---
SHIFT SUMMARY NO ACUTE CHANGES. PATIENT MEDICATED X 3 FOR PAIN, X 1 FOR ANXIETY. PATIENT IS EXTREMELY PAINFUL IN HER RIGHT HIP WITH ANY MOVEMENT. SEVERAL STAFF REQUIRED FOR PERSONAL CARE AND GARCIA PLACEMENT. PATIENT VERY ANXIOUS AND SCREAMS/CLINGS TO BED WHEN ROLLED FOR CARE. PT ATTEMPTED EVAL OF PATIENT TODAY BUT PATIENT FELT SHE WAS TOO PAINFUL TO PARTICIPATE. CALL LIGHT IN REACH.
[2019-06-04 22:28] LABS: Bicarbonate Venous 11.5 mmol/L (24.0-30.0); PCO2 Venous 38.7 mmHg (38-42); PO2 Venous 26.8 mmHg (38-42); pH Blood Venous 7.12 (7.34-7.37)
--- NOTE | 2019-06-04 22:46 | NUR ---
RAPID RESPONSE DOBBY LOOM FIXER CALLED D/T RESP DISTRESS. PT WAS PLACED ON CPAP PER HER REQUEST, READY TO GO TO BED. RN PLACED CPAP AND LEFT ROOM, O2 SATS AT 90% VIA CONT PULSE OX. SEVERAL MINUTES LATER, CONT PULSE OX WAS ALARMING AND O2 SATS FOUND TO BE IN THE LOW 80s. PLACED 10L VIA NC IN MOUTH WITH CPAP STILL IN NOSE. PT CYANOTIC AND DUSKY. CLUTCHING AT THROAT/CHEST, AND COULD NOT SPEAK. ONLY GRUNTING NOISES. DOBBY LOOM FIXER CALLED.
--- NOTE | 2019-06-04 22:49 | NUR ---
PT TRANSFERRED TO ICU POST CARDIAC ARREST AND RESUSCITATION. REPORT GIVEN TO SYSTEMS ENGINEERPATRICIA LORA TO ASSUME CARE OF PT.
--- NOTE | 2019-06-04 22:51 | NUR ---
RT CALLED TO RAPID RESPONSE. PT ON CPAP WITH 10 O2 BLEED, SPO2 MONITOR UNABLE TO GET SPO2. PT ASSESSED TO NOT HAVE AFFECTIVE RESPIRATIONS, BILARERAL DECREASED BS. PT BAG MASK VENTILATED. ER CALLED TO INTUBATE BY DR HILARIO. PT VOMITTED AND ASPIRATED, NASAL TRUMPET PLACED AND PT WAS NT SUCTION TIMES 6 FOR COPIOUS SECRETIONS EACH TIME. PT VENTILATED WITH BAG MASK 100% AND PEEP VALVE 10 UNTIL PT WAS INTUBATED BY DR MOORE AT 2203 WITH 7.5 ORAL ETT 23 CM AT TEETH. POSITIVE FOR 5 BREATH COLOR CAPNOMETER CHANGE, BILATERAL BS. INLINE SUCTION ADDED, PT SUCTIONED TWICE FOR COPIOUS ASPIRATE AND WHITE SECRETIONS. CPR STARTED WHEN PULSE WAS LOST, CAPNOMETER STARTED, PT CONTINUED TO BE VENTILATED WITH AMBU BAG. CPR DONE BY RN AND RT, ROSC RETURNED. PT TRASFERRED TO ICU AND PLACED ON VENTILATOR. SEE VENT CHECK FOR MORE DETAILS.
[2019-06-04 22:55] LABS: Calcium, Ionized (POC) 1.01 mmol/L (1.10-1.46); Chloride (POC) 105 mmol/L (98-108); Glucose (ISTAT POC) 176 mg/dL (70-99); Hemoglobin (POC) 24.8 g/dL (12.0-16.0); Potassium (POC) 5.1 mmol/L (3.5-5.5); Sodium (POC) 137 mmol/L (135-148); Total CO2 (POC) 23 mmol/L (21-32)
--- NOTE | 2019-06-04 23:00 | NUR ---
PT BROTHER SOURAV NOTIFIED BY Olga LUURN NURSING ELECTRIC TRUCKER, OF PT CHANGE IN STATUS & TRANSFER TO ICU. HE IS UNABLE TO COME TO HOSPITAL AT THIS TIME.
[2019-06-04 23:09] LABS: BASOPHILS ABSOLUTE AUTO 0.06 K/mm3 (0.00-0.23); BASOPHILS PERCENT AUTO 1 % (0-2); EOSINOPHILS ABSOLUTE AUTO 0.01 K/mm3 (0.00-0.68); EOSINOPHILS PERCENT AUTO 0 % (0-6); Hemoglobin 19.7 g/dL (11.5-16.0); IMMATURE GRAN ABSOLUTE AUTO 0.13 K/mm3 (0.00-0.10); IMMATURE GRAN PERCENT AUTO 1 % (0-1); LYMPHOCYTES PERCENT AUTO 16 % (21-46); MONOCYTES ABSOLUTE AUTO 0.77 K/mm3 (0.16-1.47); MONOCYTES PERCENT AUTO 6 % (4-13); Mean Corpuscular HGB 28.6 pg (26.0-34.0); Mean Corpuscular HGB Conc 28.5 g/dL (31.5-36.5); NEUTROPHILS ABSOLUTE AUTO 10.07 K/mm3 (1.96-9.15); NEUTROPHILS PERCENT AUTO 77 % (41-73); Platelet Count 154 K/mm3 (150-400); RDW Coefficient Variation 19.9 % (11.7-14.2); White Blood Cell Count 13.14 K/mm3 (4.00-11.30)
[2019-06-04 23:11] LABS: Mean Corpuscular Volume 100 fL (80-100); Mean Platelet Volume 12.7 fL (9.1-12.4)
[2019-06-04 23:12] LABS: Hematocrit 69.2 % (33.0-51.0)
[2019-06-05 02:13] LABS: Albumin, Blood 1.9 g/dL (3.4-5.0); Albumin/Globulin Ratio 0.5 (0.8-1.8); Bilirubin, Total 3.8 mg/dL (0.1-1.0); Bun/Creatinine Ratio 16.8 (12.0-20.0); Calcium, Blood 8.2 mg/dL (8.5-10.1); Creatinine, Blood 1.25 mg/dL (0.40-1.00); Globulin, Blood 3.6 g/dL (2.2-4.0); Potassium, Blood 3.7 mmol/L (3.5-5.5); Total Protein, Blood 5.5 g/dL (6.4-8.2)
[2019-06-05 02:18] LABS: Troponin I 0.719 ng/mL (0.000-0.040)
[2019-06-05 02:24] LABS: Base Excess Venous -1.2 mmol/L; PCO2 Venous 50.3 mmHg (38-42); PO2 Venous 42.2 mmHg (38-42); pH Blood Venous 7.31 (7.34-7.37)
--- NOTE | 2019-06-05 04:03 | NUR ---
ASSUMED CARE OF PT AT 2235. PT WAS RAPID RESPONSE FOLLOWED BY ROSEMARY WEBB FROM MEDICAL FLOOR ROOM 364. PT TO ICU 13 INTUBATED WITH VENT SETTINGS AC 14/450/10/100%. PT DIAPHORETIC, AFEBRILE. PT ALERT TO VERBAL STIMULI AND ABLE TO FOLLOW DIRECTIONS-OPENS EYES ON COMMAND AND SQUEEZES HANDS. LUNG SOUNDS COARSE T/O. PER MED FLOOR NURSE PT WAS WITNESSED ASPIRATING WHILE EATING. OGT TO LIS, COPIOUS AMOUNTS OF OSUNA FOOD LIKE SUBSTANCE OUTPUT. PT TACHYCARDIC WITH HR IN THE 140'S-150'S. BLOOD PRESSURES ONLY FOUND WITH DOPPLER. PT CURRENTLY ON LEVOPHED 20 MCG/MIN, DOPAMINE 5 MCG/KG/MIN, AND VASOPRESSIN 0.04 UNITS/MIN. HYPOACTIVE BOWEL TONES X4. GARCIA IN PLACE UPON ARRIVAL, DRAINING ORANGE/YELLOW CLOUDY URINE. PANNUS/GROIN REDDENED. BRUISES AND SCAB RIGHT UPPER ARM. PT RECEIVING 6 OF 6 LITER FLUID BOLUS. PROPOFOL 35 MCG/KG/MIN. DR. SLATER IN AT 0100 TO ASSESS PATIENT AND INSERT CENTRAL LINE/ SEE FULL SHIFT ASSESSMENT.
[2019-06-05 04:32] LABS: BASOPHILS ABSOLUTE AUTO 0.11 K/mm3 (0.00-0.23); BASOPHILS PERCENT AUTO 0 % (0-2); EOSINOPHILS PERCENT AUTO 0 % (0-6); Hemoglobin 17.8 g/dL (11.5-16.0); IMMATURE GRAN ABSOLUTE AUTO 0.38 K/mm3 (0.00-0.10); IMMATURE GRAN PERCENT AUTO 1 % (0-1); LYMPHOCYTES ABSOLUTE AUTO 1.64 K/mm3 (0.84-5.20); LYMPHOCYTES PERCENT AUTO 6 % (21-46); MONOCYTES ABSOLUTE AUTO 2.55 K/mm3 (0.16-1.47); MONOCYTES PERCENT AUTO 9 % (4-13); Mean Corpuscular HGB 28.5 pg (26.0-34.0); Mean Corpuscular HGB Conc 28.8 g/dL (31.5-36.5); Mean Corpuscular Volume 99 fL (80-100); NEUTROPHILS ABSOLUTE AUTO 22.76 K/mm3 (1.96-9.15); NEUTROPHILS PERCENT AUTO 83 % (41-73); Platelet Count 170 K/mm3 (150-400); RDW Coefficient Variation 19.7 % (11.7-14.2); RDW Standard Deviation 69.1 fL (35.1-46.3); Red Blood Cell Count 6.25 M/mm3 (3.80-5.20); White Blood Cell Count 27.44 K/mm3 (4.00-11.30)
[2019-06-05 04:33] LABS: Hematocrit 61.7 % (33.0-51.0); Mean Platelet Volume 13.8 fL (9.1-12.4)
[2019-06-05 04:50] LABS: Albumin, Blood 1.9 g/dL (3.4-5.0); Anion Gap 9 mmol/L (6-16); Blood Urea Nitrogen 24 mg/dL (8-24); Bun/Creatinine Ratio 16.6 (12.0-20.0); CO2, Blood 25 mmol/L (21-32); Calcium, Blood 8.4 mg/dL (8.5-10.1); Chloride, Blood 107 mmol/L (98-108); Creatinine, Blood 1.45 mg/dL (0.40-1.00); Glomerular Filtration Rate 41 (60-); Glucose, Blood 210 mg/dL (70-99); Magnesium, Blood 1.6 mg/dL (1.6-2.4); Phosphorus, Blood 2.3 mg/dL (2.5-4.9); Potassium, Blood 3.7 mmol/L (3.5-5.5); Sodium, Blood 141 mmol/L (136-145)
--- NOTE | 2019-06-05 05:49 | NUR ---
PT IN NEED OF BARIATRIC BED TO FACILITATE SAFE REPOSITIONING AND CLEANING OF CHAPO AREA. COMBATANT DIVER OFFICER NOTIFIED. PER RUBBER CUTTER AND SHAPE CAR[facility] BARIATRIC BEDS CURRENTLY IN USE. ORDER TO HAVE DAYSHIFT CALL TO ORDER OUT OF HOUSE BARIATRIC BED.
--- NOTE | 2019-06-05 06:40 | NUR ---
SHIFT SUMMARY NO ACUTE CHANGES SINCE TRANSFER TO ICU. CURRENT VENT SETTINGS AC 16/450/10/70%. BP STABLE WITH LEVOPHED 15 MCG/MIN, DOPAMINE 2MCG/KG/MIN, VASOPRESSIN 0.04 UNITS/MIN, PROPOFOL 35 MCG/KG/MIN, NS 100 ML/HR. PT CONTINUES TO BE DIAPHORETIC, AFEBRILE. 250 ML OUTPUT FROM OGT. 250 ML CLOUDY ORANGE URINARY OUTPUT FROM GARCIA. PT 7L FLUID OVER. WILL REPORT TO DAYSHIFT NURSE.
--- NOTE | 2019-06-05 08:45 | NUR ---
ASSESSMENT- PT SEDATED WTIH PROPOFOL AT 35 MCG/KG/MIN. DOES MOVE LEFT FOOT SPONTANEOUSLY. TOLEATING VENT. PUPILS EQUAL, RESPONSIVE TO LIGHT. BILATERAL WRIST RESTRAINTS FOR SAFETY. ORALLY INTUBATED, LUNGS CLEAR, DIMINISHED BASES. APICAL REGULAR, NSR. SBP 90'S. ON LEVOPHED GTT AT 10 MCG/MIN, DOPAMINE AT 2 MCG/KG/MIN, VASPRESSIN AT 0.04 UNITS/MIN, NS AT 100 CC/HR VIA RIJ CENTRAL LINE. OGT TO LIS WITH BROWN DRAINAGE, NO BOWEL SOUNDS. ABDOMEN LARGE, OBESE, SOFT. UO LOW AMOUNT VIA GARCIA, YELLOW URINE. INCONTINENT OF STOOL-CHAPO CARE DONE, NYSTATIN TO SKIN FOLDS. TURNED AND LINEN CHANGE DONE WITH 4 STAFF, TOLERATED POORLY-SATURATIONS DECREASED TO 82% WITH MOVEMENT, RECOVERED WITH REST.
--- NOTE | 2019-06-05 09:54 | NUR ---
PHYSICIAN- DR. ACKERMAN HERE-ASSESSED PT. SEE ORDERS. PROPOFOL ON HOLD TO ASSESS NEURO. MOVING LEFT FOOT SPONTANEOUSLY. TOLERATING VENT
--- NOTE | 2019-06-05 10:26 | NUR ---
PROPOFOL HELD-PT AWAKE, ABLE TO MOVE EXREMITIES TO COMMAND, EXPLAINED PLAN OF CARE. NODDED HEAD NO IF PAINFUL. PROPOFOL RESTARTED FOR VENT TOLERANCE, COMFORT. TITRATE TO 30 MCG/KG/MIN
--- NOTE | 2019-06-05 10:39 | NUR ---
BEDSIDE ECHO DONE. PROPOFOL AT 25 MCG/KG/MIN FOR LIGHT SEDATION. TROPONIN LEVEL ELEVATED-RESULT TO DR. ACKERMAN. PLANS FOR TODAY-TITRATE OFF DOPAMINE IF ABLE, THEN DECREASE LEVOPHED, IF LEVOPHED TITRATED BELOW 10 MCG/MIN TURN OFF VASOPRESSIN. OK FOR SATURATIONS 88-90%, DECREASE FI02 TOLERATED. UO 50 CC/HR-PHYSICIAN UPDAT
--- NOTE | 2019-06-05 11:02 | NUR ---
ECHOCARDIOGRAM COMPLETED
[2019-06-05 11:23] LABS: PCO2 Arterial 44.3 mmHg (35-45); PO2 Arterial 58.1 mmHg (80-100); pH Blood Arterial 7.36 (7.35-7.45)
--- NOTE | 2019-06-05 12:13 | NUR ---
ATTEMPT TO WEAN OFF DOPAMINE AND DECREASE LEVOPHED, HYPOTENSIVE TO 69, LEVOPHED AT 12 MCG/MIN, DOPAMINE AT 2 MCG/KG/MIN. LIGHTLY SEDATED WITH PROPOFOL AT 25 MCG/KG/MIN
--- NOTE | 2019-06-05 13:04 | NUR ---
CHANGED TO BARIATRIC BED USING CEILING LIFT. TOLERATED WELL. VS UNCHANGD. UO LOW
--- NOTE | 2019-06-05 13:37 | NUR ---
PERMISSION FOR CARE PATIENT WAS UNABLE TO GIVE STUDENT PERMISSION TO PROVIDE CARE DUE TO SEDATION LEVEL. RN GAVE STUDENT PERMISSION TO PROVIDE CARE TO THE PATIENT. DAGMAR SHARP
--- NOTE | 2019-06-05 15:40 | NUR ---
SBP IMPROVED, DOPAMINE OFF. NSR. SATURATIONS STABLE. TOLERATING VENT. UPDATE TO PT'S BROTHER ON PHONE
--- NOTE | 2019-06-05 18:10 | NUR ---
PT TOLERATING VENT SUPPORT. LIGHTLY SEDATED, ABLE TO NOD HEAD TO QUESTIONS, QUIET WHEN UNDISTURBED, NO S/S PAIN. NSR. ATTEMPT TO WEAN OFF DOPAMINE-HYPOTENSIVE AGAIN-RESOLVED WITH DOPAMINE AT 2 MCG/KG/MIN, LEVOPHED 12 MCG/MIN, VASOPRESSIN AT 0.04 UNITS/MIN. RIJ CENTRAL LINE INTACT. UO LOW. BATH DONE, SKIN FOLDS REDDENED-NYSTATIN APPLIED. SKIN SCALY BILATERAL ANKLES-LOTION ON. PT'S SON HERE WITH SPECIFICATION WRITER-UPDATE GIVEN. BILATERAL WRIST RESTRAINTS ON TO MAINTAIN TUBES
--- NOTE | 2019-06-05 21:17 | NUR ---
ASSUMED CARE NOTE: ASSUMED CARE OT PT AT 1900, RECEIVED REPORT FROM ARTHUR Wolff RN. UPON ENTERING ROOM PT WAS IN RIGHT SIDE POSITION. PT IS ON THE VENT WITH SETTINGS : AC16/450/10/55%, SP02 ABOVE 90%. PT IS IN NSR WITH HR IN THE 90'S-100. VSS WITH LEVOPHED 12MCG/MIN. DOPAMINE @ 2MCG/KG/HR, VASOPRESSIN @ 0.04 UNITS/MIN. PT WAS REPOSITIONED TO LEFT SIDE WITH WEDGE AND PILLOWS PLACED TO ALEVIATE PRESSURE TO BACK/COCCYX. GARCIA IN PLACE AND SECURED DRAINING LILIANE URINE WITH SEDIMENT.BED AT LOWEST LEVEL, SWR IN PLACE. WILL CONTINUE TO MONITOR PT T/O SHIFT.
[2019-06-06 05:19] LABS: Albumin, Blood 1.5 g/dL (3.4-5.0); Albumin/Globulin Ratio 0.4 (0.8-1.8); Bun/Creatinine Ratio 15.8 (12.0-20.0); Calcium, Blood 7.6 mg/dL (8.5-10.1); Creatinine, Blood 2.41 mg/dL (0.40-1.00); Globulin, Blood 3.6 g/dL (2.2-4.0); Magnesium, Blood 1.5 mg/dL (1.6-2.4); Phosphorus, Blood 3.3 mg/dL (2.5-4.9); Potassium, Blood 4.3 mmol/L (3.5-5.5); Total Protein, Blood 5.1 g/dL (6.4-8.2)
[2019-06-06 05:21] LABS: Hematocrit 49.1 % (33.0-51.0); Hemoglobin 14.9 g/dL (11.5-16.0); Mean Corpuscular HGB 28.4 pg (26.0-34.0); Mean Corpuscular HGB Conc 30.3 g/dL (31.5-36.5); Mean Corpuscular Volume 94 fL (80-100); Platelet Count 131 K/mm3 (150-400); Red Blood Cell Count 5.24 M/mm3 (3.80-5.20); White Blood Cell Count 15.26 K/mm3 (4.00-11.30)
[2019-06-06 05:22] LABS: Mean Platelet Volume 13.4 fL (9.1-12.4)
[2019-06-06 05:25] LABS: Base Excess Venous -0.4 mmol/L; Bicarbonate Venous 23.6 mmol/L (24.0-30.0); PCO2 Venous 46.2 mmHg (38-42); PO2 Venous 77.7 mmHg (38-42); pH Blood Venous 7.35 (7.34-7.37)
--- NOTE | 2019-06-06 06:09 | NUR ---
SHIFT SUMMARY: PT WAS AUROSABLE T/O SHIFT AND WAS ABLE TO FOLLOW SIMPLE DIRECTIONS. PT HAS BEEN TOLERATING VENT WELL AND CONTINUES TO BE ON THE FOLLOWING VENT SETTINGS: AC16/450/10/55%, SP02 ABOVE 90%. PT HAS BEEN PRODUCING THICK WHITE SECREATIONS AND HAD TO BE LAVAGED BY RT ONCE DURING SHIFT. LUNG SOUNDS ARE COARSE T/O. OG TUBE IS IN PLACE AND SECURED AND IS DRAINING BROWN DRAINAGE W/ SEDIMENT. PT CONTINUES TO BE IN NSR WITH HR IN THE 80'S, VSS, LEVOPHED @ 10MCG/MIN, VASOPRESSIN 0.04 U/MIN, DOPAMINE (OFF). DURING SHIFT PT WAS SHOWING SIGNS OF PAIN (GRIMICING/TENSE/DIAPHORETIC). PT WAS ABLE TO COMMUNICATE HER PAIN BY MOVING LOWER EXTREMITIES WHEN ASKED YES/NO QUESTIONS. PT WAS MEDICATED FOR PAIN PER EMAR. PT HAS NOT HAD A BM DURING SHIFT. URINE OUTPUT HAS IMPROVED TO AT LEAST 30ML/HR. GARCIA IN PLACE AND SECURED, DRAINING LILIANE/COLUDY URINE. PT REPOSITIONED Q2HRS USING LIFT AND PLACING FOAM WEDGE AND PILLOWS. BED AT LOWEST LEVEL, WILL CONTINUE TO MONITOR PT UNTIL REPORT IS GIVEN TO ONCOMING SHIFT.
[2019-06-06 06:20] LABS: BAND PERCENT MAN 1 % (0-8); BASOPHILS PERCENT MAN 0 % (0-2); EOSINOPHILS ABSOLUTE MAN 0.15 K/mm3 (0.00-0.68); EOSINOPHILS PERCENT MAN 1 % (0-6); LYMPHOCYTES ABSOLUTE MAN 1.06 K/mm3 (0.84-5.20); LYMPHOCYTES PERCENT MAN 7 % (21-46); MONOCYTES ABSOLUTE MAN 1.22 K/mm3 (0.16-1.47); MONOCYTES PERCENT MAN 8 % (4-13); NEUTROPHILS ABSOLUTE MAN 12.81 K/mm3 (1.96-9.15); SEG NEUTROPHILS PERCENT MAN 83 % (41-73); TOTAL CELLS COUNTED 100
--- NOTE | 2019-06-06 10:10 | NUR ---
PHYSICIANS- DR. ACKERMAN HERE AND UPDATED. SEE ORDERS. LEVOPHED TO 8 MCG/KG/MIN, VASOPRESSIN OFF. NS CHANGED TO TKO. PEEP 8, MAINTAINING SATURATIONS.
--- NOTE | 2019-06-06 10:45 | NUR ---
PT'S BROTHER HERE-UPDATED, QUESTIONS ANSWERED. PT WITH STABLE VS, LEVOPHED CONTINUES AT 8 MCG/MIN. LASIX GIVEN
--- NOTE | 2019-06-06 11:15 | NUR ---
ASSESSMENT- PT SEDATED WITH PROPOFOL AT 25 MCG/KG/MIN. ORALLY INTUBATED, TUBE SECURE. TOLERATING VENT SETTINGS. ATTEMPTS TO OPEN EYES TO VERBAL COMMANDS, MOVES EXTREMITIES. DENIES PAIN. NSR, SBP STABLE. VASOPRESSIN GTT AT 0.04 UNITS/MIN, LEVOPHED AT 10 MCG/MIN, NS AT 125 CC/HR VIA RIJ CENTRAL LINE, DDI. LUNGS CLEAR, DIMINSHED. SUCTIONED FOR THICK WHITE SECRETIONS. ABDOMEN LARGE, OBESE WITH HYPOACTIVE BOWEL SOUNDS. OGT TO LIS, NO DRAINAGE. UO ADEQUATE VIA GARCIA. BARIATRIC BED. 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 BILATERAL WRIST RESTRAINTS-EXTUBATION RISK.
[2019-06-06 13:00] LABS: Vancomycin, Trough 38.2 ug/mL (5.0-10.0)
--- NOTE | 2019-06-06 15:04 | NUR ---
DR. ACKERMAN HERE. SATURATIONS STABLE. DECREASED FI02 TO 40%. BATH DONE AND LINEN CHANGE. DIFFICULT TO REPOSITION. ABLE TO FOLLOW SOME DIRECTIONS, MOVES ARMS WEAKLY. DOES REACH FOR ETT, EXPLAINED POC, RESTRAINTS FOR SAFETY. VSS-LEVOPHED TITRATED OFF.UO ADEQUATE
--- NOTE | 2019-06-06 18:09 | NUR ---
PT WITH SBP 90'S. TOLERATING LEVOPHED AND VASOPRESSIN OFF. PT MINIMALLY SEDATED WITH PROPOFOL AT 25 MCG/KG/MIN. OPENS EYES TO VERBAL STIMULUS, DENIES PAIN. EXPLAINED PLAN OF CARE. BARIATRIC BED WITH TURNING. NSR. TUBE FEEDING INFUSING AT 20 CC/HR. UO ADEQUATE VIA GARCIA, LASIX REPEATED. NS TKO. BLOOD SUGAR 117. TOLERATING VENT
--- NOTE | 2019-06-06 18:28 | NUR ---
MEDICATIONS- SENT PT'S OWN MEDICATIONS TO PHARMACY
--- NOTE | 2019-06-06 21:40 | NUR ---
ASSUMED CARE OF PT, REPORT RCV'D FROM PATRICIA GIBSON. PT ALERT TO VERBAL STIMULI AND ABLE TO FOLLOW COMMANDS. PT PULLS AT RESTRAINTS AND HOLDS SIDE RAIL WITH REPOSITIONING. PT GIVEN COMPLETE BEDBATH WITH LINEN CHANGE. SKIN IS MOIST AND WITH YEAST IN FOLDS, CLEAN/DRIED AND NYSTATIN POWDER APPLIED. VENT SETTINGS AC 16/450/8/40%. SEDATED WITH PROPOFOL 30 MCG/KG/MIN. PT SEDATED BUT AROUSABLE. LUNG SOUNDS COARSE T/O, SMALL AMOUNT OF THICK WHITE SPUTUM SUCTIONED FROM ETT. TF-VHP @ GOAL RATE OF 30 ML/HR WITH 30 Q4 H20 FLUSH. WILL CHECK RESIDUALS PER PROTOCOL. LEVOPHED RESTARTED AT 10 MCG/MIN TO MAINTAIN MAP>65. SEE FULL SHIFT ASSESSMENT.
[2019-06-06 21:48] LABS: Vancomycin, Random 35.8 ug/mL
[2019-06-07 04:16] LABS: Base Excess Venous 0.4 mmol/L; Bicarbonate Venous 23.9 mmol/L (24.0-30.0); PCO2 Venous 47.1 mmHg (38-42); PO2 Venous 46.4 mmHg (38-42); pH Blood Venous 7.35 (7.34-7.37)
[2019-06-07 04:20] LABS: BASOPHILS ABSOLUTE AUTO 0.04 K/mm3 (0.00-0.23); BASOPHILS PERCENT AUTO 0 % (0-2); EOSINOPHILS ABSOLUTE AUTO 0.28 K/mm3 (0.00-0.68); EOSINOPHILS PERCENT AUTO 3 % (0-6); Hematocrit 44.4 % (33.0-51.0); Hemoglobin 13.7 g/dL (11.5-16.0); IMMATURE GRAN ABSOLUTE AUTO 0.06 K/mm3 (0.00-0.10); IMMATURE GRAN PERCENT AUTO 1 % (0-1); LYMPHOCYTES ABSOLUTE AUTO 1.29 K/mm3 (0.84-5.20); LYMPHOCYTES PERCENT AUTO 12 % (21-46); MONOCYTES ABSOLUTE AUTO 0.89 K/mm3 (0.16-1.47); MONOCYTES PERCENT AUTO 8 % (4-13); Mean Corpuscular HGB 28.5 pg (26.0-34.0); Mean Corpuscular HGB Conc 30.9 g/dL (31.5-36.5); Mean Corpuscular Volume 92 fL (80-100); Mean Platelet Volume 12.1 fL (9.1-12.4); NEUTROPHILS ABSOLUTE AUTO 8.49 K/mm3 (1.96-9.15); NEUTROPHILS PERCENT AUTO 77 % (41-73); Platelet Count 138 K/mm3 (150-400); RDW Coefficient Variation 18.6 % (11.7-14.2); RDW Standard Deviation 62.5 fL (35.1-46.3); Red Blood Cell Count 4.81 M/mm3 (3.80-5.20); White Blood Cell Count 11.05 K/mm3 (4.00-11.30)
[2019-06-07 04:39] LABS: Albumin, Blood 1.6 g/dL (3.4-5.0); Albumin/Globulin Ratio 0.4 (0.8-1.8); Bilirubin, Total 4.2 mg/dL (0.1-1.0); Bun/Creatinine Ratio 14.3 (12.0-20.0); Calcium, Blood 8.4 mg/dL (8.5-10.1); Creatinine, Blood 3.36 mg/dL (0.40-1.00); Globulin, Blood 3.8 g/dL (2.2-4.0); Phosphorus, Blood 3.9 mg/dL (2.5-4.9); Potassium, Blood 3.9 mmol/L (3.5-5.5); Total Protein, Blood 5.4 g/dL (6.4-8.2)
--- NOTE | 2019-06-07 06:06 | NUR ---
SHIFT SUMMARY PT REMAINS INTUBATED WITH VENT SETTINGS AC 16/450/8/40% AND SEDATED ON PROPOFOL 35 MCG/KG/MIN. PT FOLLOWS COMMANDS WHILE ON SEDATION, OPENS EYES, GRABS RAILS, SQUEEZES HANDS. PT DENIES PAIN BY SHAKING HEAD "NO". PT EXHIBITS FACIAL GRIMICING DURING BEDBATH/CATH CARE AND ATTEMPTS TO RESIST CARE. MODERATE AMOUNT OF THICK WHITE/YELLOW SPUTUM SUCTIONED OUT OF ETT. INSPIRATORY WHEEZES HEARD BILATERAL UPPER LOBES. 1400 ML URINARY OUTPUT. WILL REPORT TO DAYSHIFT NURSE.
[2019-06-07 07:39] LABS: Vancomycin, Random 33.9 ug/mL
--- NOTE | 2019-06-07 08:00 | NUR ---
INITIAL ASSESSMENT PATIENT INTUBATED AND ON SEDATION UPON ENTERING ROOM. PATIENT RESPONDS TO VERBAL STIMULI. PATIENT DOES FOLLOW SOME SIMPLE COMMANDS, SUCH SQUEEZING HANDS AND WIGGLING FEET. CRUSTING NOTED TO R EYE. PATIENT HAS NO SIGNS OF PAIN AT THIS TIME. RECEIVED REPORT THAT PATIENT DOES HAVE CHRONIC PAIN IN HIPS FROM OSTEOARTHRITIS. PATIENT AFEBRILE. PATIENT SATTING 90% AND GREATER ON VENT SETTINGS OF AC 16, TV 450, PEEP 8, FIO2 40% FIO2. LUNGS COARSE AND RHONCHI NOTED T/O. MODERATE AMOUNT OF THICK, PALE YELLOW SPUTUM BEING SUCTIONED FROM ETT. PATIENT IN SR, HR 80S TO 90S. BP STABLE ON LEVOPHED DRIP. 1+ EDEMA NOTED IN BILAT HANDS. NON-PITTING, GENERALIZED EDEMA NOTED. ABDOMEN MODERATELY DISTENDED, SOFT, WITH HYPOACTIVE BS. OG IN PLACE. RESIDUAL OF 330 MLS OBTAINED THIS AM. 250 MLS REINSTILLED. TF TURNED OFF FOR TIME BEING. LAST BM NOTED ON THE 10TH. GARCIA IN PLACE DRAINING DARK YELLOW URINE. PATIENT RECEIVING SCHEDULED LASIX. REDDENED GROIN SKINFOLDS NOTED. SOME BRUISING NOTED. SCAB TO R SHOULDER. SMALL SKIN TEAR NOTED IN PANNUS. SCALING NOTED TO ANKLES. PROPOFOL INFUSING AT 35 MCG/ KG/ MINUTE, LEVOPHED INFUSING AT 1 MCG/ MINUTE AT THIS TIME. NS TKO. BED LOW, CALL LIGHT IN REACH. WILL CONTINUE TO MONITOR FREQUENTLY THROUGHOUT SHIFT.
--- NOTE | 2019-06-07 12:00 | NUR ---
PATIENT REMAINS INTUBATED AND ON SEDATION. PATIENT HAS BEEN SATTING 90% AND GREATER ON SPONTANOUS PRESSURE SUPPORT VENT SETTINGS, 10/8, 40% FIO2. LOWER LUNG LOBES DIMINISHED. LLL COARSE. EXPIRATORY COARSENESS NOTED IN BILAT UPPER LOBES. SCANT AMOUNT OF THICK, PALE YELLOW SPUTUM SUCTIONED FROM ETT. PATIENT REMAINS IN SR, HR 80S TO 90S. BP REMAINS STABLE ON LEVOPHED DRIP- RANGING BETWEEN 1-4 MCG/ MINUTE. TF RESIDUAL OF 240 MLS OBTAINED AND REINSTILLED. TF INFUSING AT HALF GOAL RATE- 15 MLS/ HOUR. WILL CONTINUE TO MONITOR FOR TOLERANCE. URINE, FROM GARCIA, CLOUDY WITH SEDIMENT NOTED. BLOOD SUGAR OF 124- COVERAGE NOTE INDICATED. NO OTHER CHANGES TO NOTE ON AT THIS TIME. WILL CONTINUE TO MONITOR.
--- NOTE | 2019-06-07 12:01 | NUR ---
EMPLOYEES HERE FROM [employer]. ALLIE VERIFIED. PATIENT'S SON PLACED WITH [facility] FAMILY WHILE PATIENT IN HOSPITAL. EMPLOYEES BROUGHT SON TO SEE PATIENT YESTERDAY. FORM SIGNED BY PATIENT IN PCU GAVE CONSENT TO DISCLOSE INFORMATION TO [facility] REGARDING ER RECORDS.
--- NOTE | 2019-06-07 16:00 | NUR ---
PATIENT AFEBRILE. PATIENT PLACED BACK ON AC 16, TV 450, PEEP 8, 40% FIO2. PATIENT IN SR TO ST, HR 90S TO 120S. BP STABLE ON LEVOPHED AT 2 MCG/ MINUTE. RESIDUAL OF 300 MLS OBTAINED. 250 MLS REINSTILLED. TF TURNED OFF FOR NOW. NO OTHER ACUTE CHANGES TO NOTE ON AT THIS TIME. WILL CONTINUE TO MONITOR.
--- NOTE | 2019-06-07 18:43 | NUR ---
SHIFT SUMMARY PATIENT REMAINED INTUBATED AND ON SEDATION. PATIENT REMAINED RESPONDING TO VERBAL STIMULI AND FOLLOWING SOME SIMPLE COMMANDS. BILAT EYES CRUSTY. PATIENT REMAINED AFEBRILE. PATIENT GIVEN PRN FENTANYL AND OXYCODONE THIS SHIFT FOR CHRONIC HIP PAIN. PATIENT SATTED 90% AND GREATER ON AC 16, TV 450, PEEP 8, FIO2 40% AND ON PS 10/8, 40% FIO2. LUNGS REMAINED COARSE. PATIENT HAS SCANT TO MODERATE AMOUNT OF THICK, PALE YELLOW SPUTUM SUCTIONED FROM ETT. PATIENT IN SR TO ST, HR 80S TO 120S. BP REMAINED STABLE ON LEVOPHED FROM 1 TO 4 MCG/ MINUTE. PATIENT HAD NO BMS THIS SHIFT. TF RESIDUALS 240 TO 420 MLS. TF DECREASED TO HALF GOAL RATE AND IS OFF FOR TIME BEING. GARCIA DRAINED ADEQUATE AMOUNT OF DARK YELLOW, CLOUDY URINE WITH SEDIMENT NOTED. PATIENT RECEIVING SCHEDULED LASIX. NO CHANGE TO SKIN. PATIENT REPOSITIONED THROUGHOUT SHIFT. PROPOFOL INFUSING AT 35 MCG/ KG/ MINUTE. NO SIGNS OF PAIN OR DISCOMFORT NOTED AT THIS TIME. BED LOW, CALL LIGHT IN REACH. REPORT WILL BE GIVEN TO ONCOMING PRESSER AND SHAPER [employer]ITT[employer] NURSE SHORTLY.
--- NOTE | 2019-06-07 21:45 | NUR ---
ASSUMED CARE OF PT, REPORT RCV'D FROM CICI, RN AND GWEN RN. PT ALERT TO VERBAL STIMULI, PT ABLE TO SQUEEZE HANDS ON DEMAND AND ATTEMPTS TO OPEN EYES. PT EXHIBITS FACIAL GRIMACING AND STIFFENING OF BODY WITH REPOSITIONING AND BEDBATH. PT PULLING ON RESTRAINTS AND BANGING ON SIDE OF BED. MEDICATED FOR PAIN RELIEF PER EMAR. TF REMAINS ON STANDBY D/T INCREASING RESIDUALS. 490 ML RESIDUALS AT START OF SHIFT, 250 ML REINSTILLED. WILL RECHECK Q4. VENT SETTINGS AC 16/450/8/40%. LUNG SOUNDS COARSE T/O. PROPOFOL @ 35 MCG/KG/MIN FOR SEDATION. GARCIA PATENT AND DRAINING. YEAST IN SKIN FOLDS MUCH IMPROVED THIS EVENING. BP STABLE, LEVOPHED REMAINS ON STANDBY. SEE FULL SHIFT ASSESSMENT.
[2019-06-08 04:38] LABS: BASOPHILS ABSOLUTE AUTO 0.02 K/mm3 (0.00-0.23); BASOPHILS PERCENT AUTO 0 % (0-2); EOSINOPHILS ABSOLUTE AUTO 0.22 K/mm3 (0.00-0.68); EOSINOPHILS PERCENT AUTO 3 % (0-6); Hematocrit 41.6 % (33.0-51.0); Hemoglobin 12.6 g/dL (11.5-16.0); IMMATURE GRAN ABSOLUTE AUTO 0.03 K/mm3 (0.00-0.10); IMMATURE GRAN PERCENT AUTO 1 % (0-1); LYMPHOCYTES ABSOLUTE AUTO 1.08 K/mm3 (0.84-5.20); LYMPHOCYTES PERCENT AUTO 16 % (21-46); MONOCYTES ABSOLUTE AUTO 0.62 K/mm3 (0.16-1.47); MONOCYTES PERCENT AUTO 9 % (4-13); Mean Corpuscular HGB 28.4 pg (26.0-34.0); Mean Corpuscular HGB Conc 30.3 g/dL (31.5-36.5); Mean Corpuscular Volume 94 fL (80-100); Mean Platelet Volume 12.7 fL (9.1-12.4); NEUTROPHILS ABSOLUTE AUTO 4.69 K/mm3 (1.96-9.15); NEUTROPHILS PERCENT AUTO 70 % (41-73); Platelet Count 131 K/mm3 (150-400); RDW Coefficient Variation 18.3 % (11.7-14.2); RDW Standard Deviation 63.2 fL (35.1-46.3); Red Blood Cell Count 4.44 M/mm3 (3.80-5.20); White Blood Cell Count 6.66 K/mm3 (4.00-11.30)
[2019-06-08 05:03] LABS: Anion Gap 8 mmol/L (6-16); Blood Urea Nitrogen 55 mg/dL (8-24); CO2, Blood 28 mmol/L (21-32); Calcium, Blood 8.5 mg/dL (8.5-10.1); Chloride, Blood 102 mmol/L (98-108); Creatinine, Blood 3.94 mg/dL (0.40-1.00); Glomerular Filtration Rate 13 (60-); Glucose, Blood 94 mg/dL (70-99); Magnesium, Blood 2.1 mg/dL (1.6-2.4); Phosphorus, Blood 4.5 mg/dL (2.5-4.9); Potassium, Blood 4.1 mmol/L (3.5-5.5); Sodium, Blood 138 mmol/L (136-145); Vancomycin, Random 29.8 ug/mL
--- NOTE | 2019-06-08 06:21 | NUR ---
SHIFT SUMMARY PT REMAINS INTUBATED WITH VENT SETTINGS AC 16/450/8/40%, PROPOFOL INCREASED TO 40 MCG/KG/MIN TO HELP DECREASE PT'S AGITATION. PT CONTINUES TO FOLLOW COMMANDS. INCREASED FACIAL GRIMACING NOTICED THIS SHIFT. MEDICATED WITH PAIN MEDICATION NEEDED. PT HAD COPIOUS AMOUNTS OF THICK WHITE ORAL SECRETIONS AND THICK YELLOW/WHITE SECRETIONS FROM ETT. BP REMAINED STABLE WITHOUT THE NEED OF PRESSORS. 1300 ML URINARY OUTPUT. WILL REPORT TO DAYSPRFT NURSE.
--- NOTE | 2019-06-08 08:00 | NUR ---
INITIAL ASSESSMENT: ASSUMED CARE FOR PT. PT CURRENTLY ON PROPOFOL DRIP AT 40. ETT TUBE IN PLACE AND ON AC VENT WITH PEEP AT 8 AND FIO2 40%. PT RESPONDS TO SOME VERBAL COMMANDS. NEG BABINSKI BOTH EYES CRUSTING. LUNG SOUNDS COURSE THROUGHOUT. SMALL AMT OF YELLOW SECRETIONS SUCTIONED. HEART SOUNDS DISTANT IN SR WITH HR IN 80S. PT HAS GENERALIZED EDEMA WITH 1+PITTING IN BLE. MOD ABD DISTENTION WITH NORMOACTIVE BOWEL TONES. OG IN PLACE. 165ML RESIDUAL-REINSTILLED. MEDS MIXED IN 10ML OF GIVEN WITH A 30ML FLUSH. TF RESUMED AT 15ML/HR. FLOEY IN PLACE DRAINING CLEAR YELLOW URINE. BRUISING TO MONALISA, BRUISING TO ABD, SCALING BLE. YEAST IN FOLDS-NYSTATIN APPLIED. RIJ INFUSING WITH NS AND PROPOFOL. ORAL CARE, EYE CARE, AND REPOSITIONING DONE THIS AM.
--- NOTE | 2019-06-08 14:03 | NUR ---
PT BECOMING AGITATED, ANXIOUS, DIAPHORETIC AND DESATTING <90%. AFEBRILE. PROPOFOL TITRATED FROM 20 MCG TO 40 MCG AND VENT SETTINGS CHANGED TO AC. CURRENT SATS >90%. BP AND HR STABLE. WILL CONTINUE TO MONITOR
--- NOTE | 2019-06-08 14:27 | NUR ---
[facility] care visit conducted. Patientis lying in bed and mostly unresponsive. Patient is known to this ad copy writer. I told patient who I was and patient attempted to open her eyes and turn her head toward me. I told her that many prayers were going out for her. Patient did not respond. I asked patient if I could pray for her now. Patient nodded her head slowly but affrimingly. I provided prayer. I stayed with patient for a little while then exited. I will continue to remain available to patient and family.
--- NOTE | 2019-06-08 14:30 | NUR ---
UPDATED DR. ACKERMAN ON PATIENT STATUS. INFORMED THAT RESIDUAL REMAINS HIGH AT 370 MLS. 250 REINSTILLED. 50 MLS DISCARDED. INFORMED THAT TF IS OFF. INFORMED THAT PATIENT PLACED BACK ON AC SETTINGS AND PUT BACK ON SEDATION FOR INCREASED AGITATION AND DECREASED SATURATION INTO THE 80S. INFORMED THAT BLOOD SUGARS ARE TRENDING DOWN- LAST BLOOD SUGAR 79. ORDERED FOR IV REGLAN OT AND CLINIMEX. STATES TO HAVE TUBE FEED ON TOLERATED AND IF NOT BEING TOLERATED THEN USE CLINIMEX.
--- NOTE | 2019-06-08 15:16 | NUR ---
Review of patient with nursing brother in to visit and left contact. review of plan of care.
--- NOTE | 2019-06-08 16:46 | NUR ---
PT CURRENTLY RESTING COMFORTABLY. PT STILL FOLLOWING SOME COMMANDS. VITALS STABLE CURRENTLY. VENT AC AT 16, TIDAL VOLUME 450, PEEP 8, FIO2 40%. SATTING >90%. CURRENTLY ON 40 OF PROPOFOL. TF RESUMED AT 15ML/HR AND CLINIMIX STOPPED. NO ACUTE CHANGES AT THIS TIME. WILL CONTINUE TO MONITOR
--- NOTE | 2019-06-08 17:04 | NUR ---
PATIENT'S SON HERE TO VISIT WITH ANOTHER VISITOR. PATIENT'S SON ASKED HOW LONG IT WOULD BE BEFORE PATIENT WOULD BE GETTING OUT OF HOSPITAL. SON UPDATED ON MOTHER'S CONDITION AND THAT SHE WOULD CONTINUE TO BE IN THE HOSPITAL FOR AT LEAST ANOTHER WEEK.
--- NOTE | 2019-06-08 18:10 | NUR ---
SHIFT SUMMARY: PT INTUBATED AND SEDATED. ABLE TO FOLLOW SIMPLE COMMANDS. BOTH EYES DRAINING AND CRUSTY. AFEBRILE ALL SHIFT. LUNG SOUNDS COURSE THROUGHOUT. SMALL AMT OF THIN WHITE/YELLOW SPUTUM. VENT SETTINGS 16/450,8 FIO2 40%. PT DID HAVE AN HOUR WEAN. TOLERATED FOR ABOUT AN HOUR BEFORE DESATTING AND BECOMING ANXIOUS AND NEEDING TO BE PLACED ON INCREASED SEDATION AND VENT SETTINGS. CURRENTLY SATTING >90%. IN SR BP STABLE 130-150S. HR 80-90S. PT HAS GENERALIZED EDEMA. MOD ABD DISTENSION WITH HYPOACTIVE BOWEL TONES. NO BM THIS SHIFT OG IN PLACE. HIGH RESIDUALS 165, 370,130. TUBE FEED INFUSING AT 15ML/HR. PRN REGLAN ORDERED. GARCIA IN PLACE DRAINING CLEAR YELLOW URINE. BRUISING TO R UPPER ARM, BRUISING TO ABD, ANKLES SCALING. PT HAS R IJ WITH PROPOFOL AT 40, NS TKO. PT HAS CLINIMIX HANGING IF PT DOES NOT TOLERATE TF.
--- NOTE | 2019-06-08 23:14 | NUR ---
ASSUMED PT CARE AT 1915 INTUBATED AND SEDATED. PROPOFOL AT 40MCG/KG/MIN. PT ABLE TO WITHDRAWAL FROM NOXIOUS STIMULI, FOLLOW COMMANDS, AND MAKE GROSS MOTOR MOVEMENTS. VENT SETTINGS: AC 16, TV 450, PEEP 8, FIO2 40%; RR 20; BIOX 90%. BITE BLOCK NOTED TO HAVE SLID BACK AND PT CLENCHING DOWN ON ETT; NOTIFIED RT WHO REPOSITIONED BITE BLOCK. PT TENDS TO BITE DOWN ON ETT WITH ANY NOXIOUS STIMULI OR ORAL CARE; WILL CONTINUE TO MEDICATE WITH FENTANYL PER ORDERS NEEDED. NOTED TO BE IN NSR WITH HR 80'S. LUNG SOUNDS COARSE T/O WITH EXPIRATORY WHEEZES NOTED. MODERATE AMOUNTS OF THICK, YELLOW SECRETIONS/SPUTUM BEING SUCTIONED THROUGH ETT. ABDOMEN IS SEVERLY DISTENDED WITH HYPOACTIVE TONES; NO RESIDUAL NOTED THEREFORE, INCREASED VITAL HIGH PROTEIN FROM 15MLS/HR TO 25MLS/HR; GOAL IS 30MLS/HR. PT HAS DEPENDENT/GENERALIZED EDEMA NOTED. SKIN IS NOTED TO BE DRY WITH PATCHES OF RAISED, BROWN DISCOLORED SCALING NOTED TO BLE'S. UNABLE TO ASSESS EYE OPENING RESPONSE PT HAS CRUSTED YELLOW/GREEN EYE DISCHARGE TO BILATERAL EYELIDS; APPLIED WARM COMPRESS AND EYE DROPS PER ORDERS WITH NO RESULTS. PT APPEARS COMFORTABLE AT THIS TIME. NO FAMILY AT BEDSIDE.
[2019-06-09 04:22] LABS: BASOPHILS ABSOLUTE AUTO 0.01 K/mm3 (0.00-0.23); BASOPHILS PERCENT AUTO 0 % (0-2); EOSINOPHILS ABSOLUTE AUTO 0.25 K/mm3 (0.00-0.68); EOSINOPHILS PERCENT AUTO 4 % (0-6); Hematocrit 41.9 % (33.0-51.0); IMMATURE GRAN ABSOLUTE AUTO 0.07 K/mm3 (0.00-0.10); IMMATURE GRAN PERCENT AUTO 1 % (0-1); LYMPHOCYTES ABSOLUTE AUTO 1.58 K/mm3 (0.84-5.20); LYMPHOCYTES PERCENT AUTO 22 % (21-46); MONOCYTES ABSOLUTE AUTO 0.76 K/mm3 (0.16-1.47); MONOCYTES PERCENT AUTO 11 % (4-13); Mean Corpuscular HGB 29.2 pg (26.0-34.0); Mean Corpuscular Volume 94 fL (80-100); NEUTROPHILS PERCENT AUTO 63 % (41-73); Platelet Count 154 K/mm3 (150-400); RDW Coefficient Variation 18.6 % (11.7-14.2); RDW Standard Deviation 63.8 fL (35.1-46.3); Red Blood Cell Count 4.45 M/mm3 (3.80-5.20); White Blood Cell Count 7.17 K/mm3 (4.00-11.30)
[2019-06-09 04:25] LABS: Mean Platelet Volume 13.7 fL (9.1-12.4)
[2019-06-09 04:40] LABS: Anion Gap 10 mmol/L (6-16); Blood Urea Nitrogen 59 mg/dL (8-24); Bun/Creatinine Ratio 13.4 (12.0-20.0); CO2, Blood 25 mmol/L (21-32); Calcium, Blood 8.5 mg/dL (8.5-10.1); Chloride, Blood 101 mmol/L (98-108); Glomerular Filtration Rate 11 (60-); Glucose, Blood 90 mg/dL (70-99); Phosphorus, Blood 4.8 mg/dL (2.5-4.9); Potassium, Blood 4.5 mmol/L (3.5-5.5); Sodium, Blood 136 mmol/L (136-145); Vancomycin, Random 25.6 ug/mL
--- NOTE | 2019-06-09 05:51 | NUR ---
END OF SHIFT SUMMARY PT REMAINS INTUBATED AND SEDATED. PROPOFOL CURRENTLY AT 35MCG/KG/MIN. VENT SETTINGS: AC 16, TV 450, PEEP 8, FIO2 60%. PT IS ABLE TO OPEN EYES TO VERBAL STIMULI, WITHDRAWALS FROM PAINFUL STIMULI, AND IS ABLE TO FOLLOW SIMPLE COMMANDS. PT CONTINUED TO BITE DOWN ON ETT, WHICH REQUIRED RT TO RE-TAPE TWICE THIS SHIFT. PT REQUIRED HIGH DOSES OF PROPROFOL WELL FENTANYL FOR ADJUNCT SEDATION, WHICH APPEARED EFFECTIVE. FIO2 REQUIREMENTS INCREASED FROM 40 TO 60. LUNG SOUNDS REMAINS VERY COARSE AND WHEEZY T/O; HOWEVER, SCANT AMOUNT OF THICK, YELLOW DRAINAGE CONTINUES TO GET SUCTIONED FROM ETT. PT REMAINS IN NSR WITH HR 80'S. BP'S MOSTLY STABLE T/O SHIFT UNTIL APPROXIMATELY 0500 PT STARTED HAVING LOW BP'S WITH MAPS 50'S; RESTARTED LEVOPHED AT A LOW DOSE OF 2MCG/MIN. ABDOMEN IS DISTENDED WITH HYPOACTIVE TONES; NO BM THIS SHIFT. OG CONTINUES VITAL HIGH PROTEIN AT GOAL OF 30MLS/HR WITH MINIMAL TO NO RESIDUALS THIS SHIFT. GARCIA CATH REMAINS PATENT AND DRAINING CLOUDY, DARK YELLOW URINE TO GRAVITY. SKIN REMAINS INTACT WITH CENTRAL LINE TO RIGHT IJ. PT CONTINUES TO BE REPOSITIONED Q2 HOURS. WILL CONTINUE TO MONITOR FOR ANY CHANGES UNTIL REPORT IS HANDED OFF TO ONCOMING RN.
--- NOTE | 2019-06-09 08:00 | NUR ---
ASSUMED CARE. PT SEDATED AND ON VENT. FOLLOWS SOME COMMANDS. AFEBRILE AT BEGINNING OF SHIFT. LUNG SOUNDS COARSE AND DIMINISHED AT BASES. VENT SETTINGS AC 15/450/8/60. SATTING >90%. NSR WITH HR IN THE 90S AND SBP IN [id number]. ON LEVOPHED AT 2. ABD MILDLY DISTENDED WITH HYPOACTIVE BOWEL TONES. LAST BM 06/06. GARCIA IN PLACE DRAINING CLEAR YELLOW URINE. GROIN/PANNUS AREA RED, YEASTY. MONALISA BRUISING. BROWN SCALING TO BLE. R IJ INFUSING WITH PROPOFOL AT 35 NK TKO, LEVOPHED AT 2, CEFTRIAXONE. OG IN PLACE WITH VHP AT 30 ML/HR (AT GOAL) WITH 30 ML FLUSH Q4H. RESIDUALS THIS AM 190MLS. NO ACUTE CHANGES THIS AM. WILL CONTINUE TO MONITOR
--- NOTE | 2019-06-09 11:23 | NUR ---
PT CURRENTLY RESTING COMFORTABLY. BP IN THE 100S, HR IN THE 80S. VENT SETTING REMAIN THE SAME AND IS SATTING 89-91%. LUNG SOUNDS WHEEZY. RT CONSULTED AND IS CURRENTLY AT BEDSIDE. WILL CONTINUE TO MONITOR.
--- NOTE | 2019-06-09 14:39 | NUR ---
SPO2 DESAT 70% AND COUGHING AFTER REPOSITIONING PT ONTO LEFT SIDE. PT REPOSITIONED ONTO BACK, SPO2 SLOWLY INCREASING. PT GRIMACING, CONTINUES TO COUGH. MEDICATED WITH FENTANYL PER ORDERS, SPO2 BACK UP TO LOW 90'S. BP STABLE ON 3MCG LEVO, WILL CONTINUE TO MONITOR. HR 80'S NSR.
--- NOTE | 2019-06-09 15:42 | NUR ---
PT CURRENTLY RESTING. NO SIGNS OF AGITATION/LANXIETY AT THIS TIME. SBP RANGING FROM 90S-100S, HR IS IN THE 80S, SATS 89-91%. LEVO REMAINS AT 3. SEDATION VACATION INITIATED. PROPOFOL DOWN TO 25. NOT RESPONDING TO VERBAL COMMANDS AT THIS TIME. NOT IN ANY APPARENT DISTRESS AT THIS TIME. WILL CONTINUE TO MONITOR. BED IN LOW POSITION AND CALL LIGHT IN REACH.
--- NOTE | 2019-06-09 20:30 | NUR ---
ASSUMED PT CARE AT 1915 INTUBATED/SEDATED. PROPOFOL AT 25MCG/KG/MIN. VENT SETTINGS: AC 16, TV 450, PEEP 8, FIO2 60%, BIOX LOW 90'S. LEVOPHED INFUSING AT 2MCG/MIN WITH SBP'S 90'S AND MAP'S 60 OR LESS; INCREASED TO 3MCG/MIN. LUNG SOUNDS CLEAR TO BILATERAL UPPER LOBES AND DIMINISHED TO BILATERAL LOWER LOBES. NSR WITH HR 80'S. VITAL HIGH PROTEIN INFUSING AT GOAL OF 30MLS/HR. HYPOACTIVE BTX4. PT HAS DEPENDENT EDEMA NOTED TO BILATERAL ARMS AND LEGS, WELL SCLERA EDEMA NOTED TO BILATERAL EYES. GARCIA CATH IS PATENT AND DRAINING TO GRAVITY; CLEAR LILIANE COLORED URINE NOTED TO DRAINAGE BAG AND CLOUDY URINE WITH SEDIMENT NOTED TO GARCIA TUBING. NO FAMILY AT BEDSIDE AT THIS TIME.
--- NOTE | 2019-06-09 21:04 | NUR ---
DR. HILARIO INFORMED DR. HILARIO REGARDING HIGH RESIDUALS AT 2000 OF 390CC THAT WAS REINSTILLED. AFTER TURNING TUBE FEEDING OFF FOR ONE HOUR RECHECKED WITH A RESIDUAL OF 300CC. ORDERS TO DISCARD CURRENT RESIDUAL; HOLD TUBE FEEDING FOR ANOTHER HOUR; RESTART AT HALF THE RATE AND CHANGE REGLAN FROM PRN TO SCHEDULED.
--- NOTE | 2019-06-09 22:35 | NUR ---
SEDATION VACATION TURNED PROPOFOL DOWN TO 10MCG/KG/MIN. AFTER ABOUT 15 MINUTES PT STARTED COUGHING AND GAGGING ON ETT. DURING SEDATION VACATION PT WAS ABLE TO FOLLOW SIMPLE COMMANDS BY WIGGLING HER TOES AND OPENING HER EYES TO VERBAL STIMULI. PT UNABLE TO SQUEEZE HAND MOST LIKELY D/T DEPENDENT EDEMA; HOWEVER, PT ABLE TO MAKE GROSS MOTOR MOVEMENTS WITH BILATERAL ARMS. PROPOFOL TURNED BACK TO 25MCG/MIN AFTER SEDATION VACATION. PT REMAINED CALM AND COOPERATIVE.
--- NOTE | 2019-06-10 03:46 | NUR ---
DR. GOMEZ SPOKE WITH DR. WASHINGTON IN REGARDS TO PT'S INCREASING FIO2 REQUIREMENT; PT IS CURRENTLY AT FIO2 80%, PEEP 8 WITH BIOX 88-90%. NEW ORDERS TO INCREASE PEEP TO 10. DR. WASHINGTON STATED IT IS OKAY FOR BIOX TO BE BETWEEN 88-90%.
[2019-06-10 03:51] LABS: BASOPHILS ABSOLUTE AUTO 0.02 K/mm3 (0.00-0.23); BASOPHILS PERCENT AUTO 0 % (0-2); EOSINOPHILS ABSOLUTE AUTO 0.27 K/mm3 (0.00-0.68); EOSINOPHILS PERCENT AUTO 4 % (0-6); Hematocrit 42.7 % (33.0-51.0); Hemoglobin 12.9 g/dL (11.5-16.0); IMMATURE GRAN ABSOLUTE AUTO 0.09 K/mm3 (0.00-0.10); IMMATURE GRAN PERCENT AUTO 1 % (0-1); LYMPHOCYTES ABSOLUTE AUTO 1.29 K/mm3 (0.84-5.20); LYMPHOCYTES PERCENT AUTO 18 % (21-46); MONOCYTES ABSOLUTE AUTO 0.77 K/mm3 (0.16-1.47); MONOCYTES PERCENT AUTO 11 % (4-13); Mean Corpuscular HGB 28.3 pg (26.0-34.0); Mean Corpuscular HGB Conc 30.2 g/dL (31.5-36.5); Mean Corpuscular Volume 94 fL (80-100); NEUTROPHILS ABSOLUTE AUTO 4.56 K/mm3 (1.96-9.15); NEUTROPHILS PERCENT AUTO 65 % (41-73); Platelet Count 175 K/mm3 (150-400); RDW Coefficient Variation 18.6 % (11.7-14.2); RDW Standard Deviation 63.2 fL (35.1-46.3); Red Blood Cell Count 4.56 M/mm3 (3.80-5.20)
[2019-06-10 03:53] LABS: Mean Platelet Volume 13.4 fL (9.1-12.4)
[2019-06-10 04:06] LABS: Bun/Creatinine Ratio 13.5 (12.0-20.0); Calcium, Blood 8.5 mg/dL (8.5-10.1); Creatinine, Blood 4.68 mg/dL (0.40-1.00); Potassium, Blood 4.3 mmol/L (3.5-5.5)
--- NOTE | 2019-06-10 05:49 | NUR ---
END OF SHIFT SUMMARY PT REMAINS INTUBATED/SEDATED. PROPOFOL CURRENTLY AT 35MCG/KG/MIN. PT ABLE TO OPEN EYES TO NOXIOUS STIMULI, AND FOLLOW SIMPLE COMMANDS. SEE SEDATION VACATION NOTE. VENT SETTINGS CURRENTLY AC 16, TV 450, PEEP 10, FIO2 80% WITH BIOX 94%. LUNG SOUNDS HAVE BEEN CLEAR AND DIMINISHED TO COARSE AND WHEEZY; BREATHING TX ADMINISTERED WITHOUT ANY CHANGE. VERY MINIMAL SECRETIONS/SPUTUM SUCTIONED FROM ETT. PT HAS REMAINED IN NSR WITH HR 80-90'S. AT START OF SHIFT PT HAD A HIGH RESIDUAL IN WHICH NEW ORDERS WERE RETRIEVED FROM DR. HILARIO TO CHANGE REGLAN FROM PRN TO SCHEDULED AND RESTART TF AT HALF THE RATE. AGAIN THIS MORNING RESIDUALS WERE ELEVATED AT 200CC; THEREFORE, LEFT VITAL HIGH PROTEIN INFUSING AT 15MLS/HR. REGLAN ADMINSTERED TWICE THIS SHIFT PER ORDERS. PT CONTINUES WITH HYPOACTIVE BTX4. REMAINS WITH NO BM; BOWEL CARE MEDICATIONS GIVEN PER ORDERS. GARCIA CATH REMAINS PATENT AND DRAINING DARK, LILIANE COLORED URINE TO GRAVITY WITH CLOUDY SEDIMENT NOTED TO TUBING. NO FURTHER CHANGES. WILL CONTINUE TO MONITOR FOR CHANGES UNTIL REPORT IS HANDED OFF TO ONCOMING RN.
--- NOTE | 2019-06-10 07:51 | NUR ---
ASSUMED CARE OF JENNI. SEDATED AT HIS TIME. SEDATION VACATION STARTED AT 0754.
--- NOTE | 2019-06-10 10:26 | NUR ---
DR GOMEZ IN TO ASSESS PT. UPDATED DR WITH PT'S CURRENT STATUS. DISCUSSED FLUID BALANCE AND CONTINUE TO DIURESE AT THIS TIME. DR DECREASED FIO2-60%, W/ A GOAL OF 88%. NO CHANGE IN NEURO STATUS FROM EARLIER AM ASSESSMENT. CONTINUE TO HOLD PROPOFOL AT THIS TIME, TO CONTINUE TO ASSESS NEURO STATUS. PT APPEARS COMFORTABLE AT THIS TIME. WILL CONT TO MONITOR FOR COMFORT. RESIDUALS LESS AFTER STARTING IV SCHEDULED REGLAN. TUBE FEEDINGS INCREASED TO 25ML/HR.
[2019-06-10 10:27] LABS: PCO2 Arterial 48.1 mmHg (35-45); pH Blood Arterial 7.32 (7.35-7.45)
--- NOTE | 2019-06-10 11:12 | NUR ---
PATIENT AROUSES TO SPEECH, OPENS L EYE, DOES NOT FOLLOW COMMANDS. SUCTIONED ORALLY AND PER ETT; SALIVA FROM ORAL CAVIY, SMALL AMT THIN OSUNA SECREIONS. TOLERATED WELL. DISCUSSED POSSIBILITY OF CUFF LEAK WITH RT PT NOTED TO HAVE SALIVA BUBBLING FROM ORAL CAVITY. CUFF INFLATION CHECKED AND PRESSURE INCEASED. NO FURTHER BUBBLING NOTED.
--- NOTE | 2019-06-10 12:41 | NUR ---
PATIENT OFF SEDATION SINCE 0754 THIS MORNING. OPENS EYES TO SPEECH (L>R), MOVING L ARM RANDOMLY WHEN RESTRAINTS RELEASED, NORMAL FLEXION, BUT NOT FOLLOWING COMMANDS. MOVED HEAD LATERALLY IN RESPONSE TO ORAL CARE. LUNGS COARSE THROUGHOUT WITH INSP AND EXP WHEEZES SCATTERED. NO EVENTS ON TELEMETRY. LEVOPHED AT 3 MCG/MIN, MAP > 65. VENT SETTINGS: 60% FIO2, PEEP 10, AC 16, TV 450. SATS 88-92%.
--- NOTE | 2019-06-10 14:57 | NUR ---
PATIENT SEDATED, COMPLIANT WITH VENT. SUCTIONED ETT X 1 WITH SMALL AMT THIN OSUNA SECRETIONS. LUNG SOUNDS SLIGHTLY IMPROVED. NO OBSERVABLE SIGNS OF PAIN AT THIS TIME.
--- NOTE | 2019-06-10 18:15 | NUR ---
SHIFT SUMMARY: PATIENT SEDATED, COMPLIANT WITH VENT AT THIS TIME. WAS UNABLE TO FOLLOW COMMANDS TODAY. HR SINUS RHYTHM, 70-90'S. DEPENDENT EDEMA TO BUE. PAIN APPEARS TO BE WELL MANAGED WITH IV FENTANYL. NO BM THIS SHIFT. NO LONGER CHECKING OGT RESIDUALS PER DR. GOMEZ. GARCIA DRAINING YELLOW URINE WITH SEDIMENT. TF INCREASED TO 25 ML/HR. NO FAMILY VISITED OR CALLED TODAY.
--- NOTE | 2019-06-10 19:13 | NUR ---
ASSUMED PT CARE PT REMAINS INTUBATED/SEDATED. PROPOFOL CURRENTLY INFUSING AT 40MCG/KG/MIN. VENT SETTINGS: AC 16, TV 450, PEEP 10, FIO2 50%; BIOX 92%. LEVOPHED INFUSING AT 2MCG/MIN. NSR WITH HR 90. VITAL HIGH PROTEIN INFUSING AT 25MLS/HR; INCREASED TO GOAL OF 30MLS/HR; PER REPORT WE ARE NOT TO CHECK RESIDUALS. GARCIA CATH PATENT AND DRAINING TO GRAVITY; DARK LILIANE COLORED URINE WITH SEDIMENT NOTED. PT CONTINUES WITH NO BM PER REPORT. NO FAMILY AT BEDSIDE AT THIS TIME.
--- NOTE | 2019-06-10 21:30 | NUR ---
SEDATION VACATION PROPOFOL TURNED OFF FOR ALMOST AN HOUR. PT REMAINED CALM AND COOPERATIVE. ABLE TO OPEN EYES TO VERBAL STIMULI. PT DID NOT TRACK WITH EYES, BUT ATTEMPTED TO TURN HEAD TO LOOK IN THE DIRECTION OF VERBAL STIMULUS. PT ABLE TO SPONTANEOULSY MOVE TOES, WELL MOVE ON COMMAND. PT ALSO NOTED TO HAVE GROSS MOTOR MOVEMENT TO LEFT ARM; HOWEVER, NO PURPOSEFUL MOVEMENT NOTED.
[2019-06-11 03:46] LABS: BASOPHILS ABSOLUTE AUTO 0.01 K/mm3 (0.00-0.23); BASOPHILS PERCENT AUTO 0 % (0-2); EOSINOPHILS ABSOLUTE AUTO 0.31 K/mm3 (0.00-0.68); EOSINOPHILS PERCENT AUTO 5 % (0-6); Hematocrit 41.2 % (33.0-51.0); Hemoglobin 12.8 g/dL (11.5-16.0); IMMATURE GRAN ABSOLUTE AUTO 0.13 K/mm3 (0.00-0.10); IMMATURE GRAN PERCENT AUTO 2 % (0-1); LYMPHOCYTES PERCENT AUTO 25 % (21-46); MONOCYTES ABSOLUTE AUTO 0.71 K/mm3 (0.16-1.47); MONOCYTES PERCENT AUTO 11 % (4-13); Mean Corpuscular HGB 28.7 pg (26.0-34.0); Mean Corpuscular HGB Conc 31.1 g/dL (31.5-36.5); Mean Corpuscular Volume 92 fL (80-100); Mean Platelet Volume 12.7 fL (9.1-12.4); NEUTROPHILS ABSOLUTE AUTO 3.65 K/mm3 (1.96-9.15); NEUTROPHILS PERCENT AUTO 57 % (41-73); Platelet Count 195 K/mm3 (150-400); RDW Coefficient Variation 18.6 % (11.7-14.2); Red Blood Cell Count 4.46 M/mm3 (3.80-5.20); White Blood Cell Count 6.41 K/mm3 (4.00-11.30)
[2019-06-11 04:04] LABS: Albumin, Blood 1.5 g/dL (3.4-5.0); Albumin/Globulin Ratio 0.3 (0.8-1.8); Bilirubin, Total 3.3 mg/dL (0.1-1.0); Bun/Creatinine Ratio 13.9 (12.0-20.0); Calcium, Blood 8.6 mg/dL (8.5-10.1); Creatinine, Blood 5.05 mg/dL (0.40-1.00); Globulin, Blood 4.6 g/dL (2.2-4.0); Magnesium, Blood 1.9 mg/dL (1.6-2.4); Potassium, Blood 4.4 mmol/L (3.5-5.5); Total Protein, Blood 6.1 g/dL (6.4-8.2)
--- NOTE | 2019-06-11 05:57 | NUR ---
END OF SHIFT SUMMARY INTUBATED/SEDATED. PROPOFOL CURRENTLY AT 30MCG/KG/MIN. VENT SETTINGS: AC 16, TV 450, PEEP 10, FIO2 60%; BIOX 92%; RR 20'S. CENTRAL LINE DRESSING TO RIGHT IJ; LEVOPHED CURRENTLY AT 2MCG/MIN. NSR WITH HR 70-80'S. VITAL HIGH PROTEIN INFUSING AT GOAL OF 30MLS/HR. GARCIA CATHETER IS PATENT AND DRAINING TO GRAVITY; DARK LILIANE COLORED URINE WITH SEDIMENT NOTED. PT HAS NOT HAD A BM THIS SHIFT; BT ARE ACTIVE X4. WILL CONTINUE TO MONITOR UNTIL REPORT IS HANDED OFF TO ONCOMING RN.
--- NOTE | 2019-06-11 08:10 | NUR ---
PATIENT SEDATED. PROPOFOL STOPPED AT 0743. OPENS EYES TO SPEECH, LEFT EASIER THAN RIGHT. DOES NOT FOLLOW COMMANDS, DOES NOT MOVE RIGHT SIDE. ABLE TO WIGGLE TOES ON L FOOT. PUPILS 1 MM, REACTIVE, DOES NOT TRACK. LUNGS WITH RHONCHI, BUT SOUND IMPROVED FROM YESTERDAY, TOLERATING VENT. VENT SETTINGS: A/C, 16, TV 450, FIO2 60%, PEEP 10. NO BM LAST SHIFT, IS RECEIVING BOWEL MEDS.
--- NOTE | 2019-06-11 08:45 | NUR ---
DR. MCDONALD AT [facility] FOR ASSESSMENT. DISCUSSED POTENTIAL FOR DIALYSIS, TO WHICH HE REFERRED THIS AUTHOR TO SCRIPT COORDINATOR ON THE CASE.
--- NOTE | 2019-06-11 11:01 | NUR ---
CONSULT CALLED TO DR CRAWLEY. AWAITING NEW ORDERS.
--- NOTE | 2019-06-11 11:40 | NUR ---
RT AT BEDSIDE TO ADJUST BITE BLOCK. PT NOTED TO BE DE SATURATING TO LOW 70%'S. DR. GOMEZ CAME TO BEDSIDE; CHANGED FROM VENT TO AMBU BAG WITH 100% O2 AND MAUALLY VENTILATED FOR SEVERAL MINUTES TO TRY RAISE O2 SAT. NEW SAT PROBE PLACED ON FINGER, PREVIOUS HAD BEEN ON EAR, READING 82%. PATIENT REPOSITIONED TO SUPINE, HOB ELEVATED > 30 DEGREES. PROPOFOL INCREASED TO 50 MCG/KG/HR FOR PT COMFORT. PLACED BACK ON VENTILATOR WITH SETTINGS CHANGED TO AC/16/TV 450/FIO2 100%/PEEP 13. ALBUTEROL NEB GIVEN VIA ETT. PROVIDER HAD MENTIONED POSSIBILITY OF BRONCHOSCOPY, BUT DECIDED AGAINST IT PT'S SATS STAYED IN LOW 90'S. ETT NOW 24 AT THE GUM, 25 AT LIP, RE-TAPED BY RT.
--- NOTE | 2019-06-11 13:25 | NUR ---
SPOKE TO PATIENT'S SON YANI BY PHONE, GAVE HIM UPDATE ON PATIENT;S CONDITION, WORSENING OF CXR TODAY, CHANGE IN ABX. HE STATED HE WILL GIVE FAMILY UPDATE.
[2019-06-11 13:29] LABS: Vancomycin, Random 21.2 ug/mL
--- NOTE | 2019-06-11 15:09 | NUR ---
DR CRAWLEY AT THE BEDSIDE TO CONSULT ON POSSIBLE NEED FOR DIALYSIS. WILL HOLD OFF ON DIALYSIS FOR NOW, THE PT CONTINUES TO HAVE GOOD URINE OUTPUT AND HAS HAD NEGATIVE FLUID VOLUMES FOR SEVERAL DAYS. WILL CONTINUE SCHEDULED DIURETICS AT THIS TIME. WILL RECHECK UA AND OBTAIN RENAL ULTRASOUND.
[2019-06-11 16:34] LABS: Source, Urine Catheter
[2019-06-11 16:54] LABS: Bilirubin, Urine Neg (Neg); Blood, Urine 2+ (Neg); Glucose Qualitative, Urine Neg (Neg); Ketones, Urine Neg (Neg); Leukocyte Esterase, Urine 2+ (Neg); Nitrite, Urine Neg (Neg); Protein, Urine 2+ (Neg); Urobilinogen, Urine NORM (Normal)
[2019-06-11 17:19] LABS: Appearance, Urine Hazy (Clear); Color, Urine Yellow (P-Yellow)
[2019-06-11 17:28] LABS: Red Blood Cells, Urine Rare /hpf (0-2)
[2019-06-11 17:29] LABS: Bacteria Few /hpf; Squamous Epithelial Cells Few /hpf (Few); Yeast/Fungi Urine Many /hpf
--- NOTE | 2019-06-11 17:32 | NUR ---
SPOKE TO PATIENT'S BROTHER SOURAV BY PHONE, GAVE UPDATE ON PT'S CONDITION. HE STATED HE WILL TRY TO VISIT ON WEDNESDAY/
--- NOTE | 2019-06-11 17:35 | NUR ---
SHIFT SUMMARY: PATIENT SEDATED, PROPOFOL AT MCG/KG/HR. LEVOPHED AT 1 MG/HR, MAP > 60. BREATH SOUNDS WITH WHEEZES, SUCTIONED ETT FOR SMALL AMT WHITE/OSUNA SECRETIONS, SATS 95% ON 90% FIO2. REMAINS IN SR, NO ECTOPY. NO BM THIS SHIFT, IS RECEIVING ALL BOWEL MEDS AND REGLAN. URINE DARKER YELLOW WITH SEDIMENT; UA SENT PER DR. CRAWLEY'S ORDER. NO OBSERVABLE S/S OF PAIN AT THIS TIME. TOLERATING TF. NEW SMALL REDDENED AREA ON R EAR FROM ETT TIES; ROTATING TIES OFF SITE WITH EVERY ROUNDING. PLAN IS FOR RENAL U/S PER DR. CRAWLEY.
--- NOTE | 2019-06-11 22:35 | NUR ---
CARE ASSUMED REPORT RECEIVED, CARE ASSUMED AT 1900 FROM PATRICIA ODOM. PT INTUBATED AND SEDATED. WITHDRAWS TO PAINFUL STIMULI. FIO2 DECREASED PER RT AT BEGINNING OF SHIFT, 02 SATURATION DROPPED TO MID 80'S WITHIN 15 MINUTES. FIO2 INCREASED BACK TO 90%. VENT SETTINGS AC 16/450/13/90%. OTHERWISE, VITALS STABLE. OG IN PLACE WITH TUBE FEEDING PER ORDERS. SEE FLOWSHEETS/ASSESSMENTS.
[2019-06-12 03:42] LABS: BASOPHILS ABSOLUTE AUTO 0.02 K/mm3 (0.00-0.23); BASOPHILS PERCENT AUTO 0 % (0-2); EOSINOPHILS ABSOLUTE AUTO 0.31 K/mm3 (0.00-0.68); EOSINOPHILS PERCENT AUTO 5 % (0-6); Hematocrit 41.7 % (33.0-51.0); Hemoglobin 12.7 g/dL (11.5-16.0); IMMATURE GRAN ABSOLUTE AUTO 0.21 K/mm3 (0.00-0.10); IMMATURE GRAN PERCENT AUTO 3 % (0-1); LYMPHOCYTES ABSOLUTE AUTO 1.43 K/mm3 (0.84-5.20); LYMPHOCYTES PERCENT AUTO 22 % (21-46); MONOCYTES ABSOLUTE AUTO 0.72 K/mm3 (0.16-1.47); MONOCYTES PERCENT AUTO 11 % (4-13); Mean Corpuscular HGB 28.2 pg (26.0-34.0); Mean Corpuscular HGB Conc 30.5 g/dL (31.5-36.5); Mean Corpuscular Volume 93 fL (80-100); Mean Platelet Volume 12.6 fL (9.1-12.4); NEUTROPHILS ABSOLUTE AUTO 3.81 K/mm3 (1.96-9.15); NEUTROPHILS PERCENT AUTO 59 % (41-73); Platelet Count 221 K/mm3 (150-400); RDW Coefficient Variation 18.6 % (11.7-14.2); RDW Standard Deviation 62.4 fL (35.1-46.3)
[2019-06-12 04:03] LABS: Albumin, Blood 1.6 g/dL (3.4-5.0); Albumin/Globulin Ratio 0.3 (0.8-1.8); Bilirubin, Total 2.2 mg/dL (0.1-1.0); Bun/Creatinine Ratio 17.7 (12.0-20.0); Calcium, Blood 8.7 mg/dL (8.5-10.1); Creatinine, Blood 5.04 mg/dL (0.40-1.00); Globulin, Blood 4.9 g/dL (2.2-4.0); Magnesium, Blood 1.9 mg/dL (1.6-2.4); Phosphorus, Blood 6.7 mg/dL (2.5-4.9); Potassium, Blood 4.8 mmol/L (3.5-5.5); Total Protein, Blood 6.5 g/dL (6.4-8.2)
--- NOTE | 2019-06-12 05:02 | NUR ---
SUMMARY RESPIRATORY STATUS DECLINING THROUGHOUT NIGHT. BREATHING CONTINUES TO BE EVEN AND UNLABORED BUT SATURATIONS PROGRESSIVELY DECLINING. PER DR. GOMEZ AND DAWOOD, RT VENT SETTINGS INCREASED TO AC 16/450/15/100%. OXYGEN SATURATIONS REMAIN IN LOW TO MID 80'S, NIMBEX DRIP STARTED PER DR. GOMEZ. SEE ASSESSMENTS/FLOWSHEETS/VITALS. NO SPONTANEOUS BREATHING TRIAL OR SEDATION VACATION DUE TO RESPIRATORY STATUS.
--- NOTE | 2019-06-12 07:00 | NUR ---
NIMBEX TITRATED DOWN DUE TO LOW BLOOD PRESSURE. BP IMPROVED AFTER TITRATION. TRAIN OF FOURS STILL 4/4, BUT BREATHING EVEN, UNLABORED AND RATE OF 16-18. REPORT TO PATRICIA DAS TO ASSUME CARE.
--- NOTE | 2019-06-12 07:30 | NUR ---
ASSUMED CARE AT 0700. REPORT FROM BINDU GOMEZ. PT INTUBATED, SEDATED, PROPOFOL INFUSING AT 45 MCG/KG/MIN, AND PARALYZED, NIMBEX AT 1.5 MCG/KG/HR. TRAIN OF FOUR, 4/4. O2 SATS 86-88%. VENT SETTINGS, AC 16/450/15/100%. PT DESATS c MINIMAL REPOSITIONING. LUNGS DIMINSHED IN BASES. PT DIAPHORETIC. MORBIDLY OBESE. NEPHROLOGY CONSULTED YESTERDAY. WILL CONTINUE TO MONITOR O2 SATS.
[2019-06-12 07:53] LABS: Vancomycin, Random 18.7 ug/mL
--- NOTE | 2019-06-12 08:20 | NUR ---
DR DINH AT BEDSIDE. NIMBEX D/C'D PER DR DINH. ANTICIPATING BILATERAL LOWER EXTREMITIES U/S.
--- NOTE | 2019-06-12 09:00 | NUR ---
RESP INCREASED TO 25, O2 SATS MID 80'S. NIMBEX RESTARTED PER DR DINH, RATE 2 MCG/KG/HR. U/S TECH AT BEDSIDE.
[2019-06-12 10:13] LABS: PCO2 Arterial 62.6 mmHg (35-45); PO2 Arterial 88.6 mmHg (80-100)
[2019-06-12 11:28] LABS: International Normalized Ratio 0.97; Prothrombin Time Results 10.3 Sec (9.7-11.5)
--- NOTE | 2019-06-12 15:25 | NUR ---
HEPARIN BOLUS AND INFUSION STARTED FOR LLE DVT, POSSIBLE PE. HYPOTENSION AND HYPOXIA NOTED AT 1300. RT AND DR DINH AT BEDSIDE. VENT SETTINGS ADJUSTED BY FABRIZIO AND RT, PEEP 13/100%/INSPIRATORY PRESSURE 17. BP CONTINUES TO TREND DOWN. 2L NS GIVEN c MINIMAL IMPROVEMENT. PROPOFOL DECREASED TO 25 MCG/KG/MIN, NIMBEX 2 MCG/KG/HR. DR DINH AWARE. LEVOPHED STARTED, TITRATE TO EFFECT. TUBE FEEDING DECREASED PER DIETARY, 15 ML/HR. WILL CONTINUE TO MONITOR.
--- NOTE | 2019-06-12 15:26 | NUR ---
Spiritual care visit conducted. Patient is intubated and non-responsive. I talk to patient about the imporatance of pulling hard for her son, about all the love and prayers for her and about the staff working hard for her. I provide prayer and will continue to remain available to patient and family.
[2019-06-12 16:15] LABS: Hematocrit 43.3 % (33.0-51.0); Hemoglobin 12.8 g/dL (11.5-16.0)
--- NOTE | 2019-06-12 16:48 | NUR ---
PEEP INCREASED TO [address] DINH, IMPROVED O2 SATS, 88-90%. CONTINUING TO TITRATE LEVOPHED FOR MAP >65. TRAIN OF FOUR, 4/4. BIS 25-35.
--- NOTE | 2019-06-12 17:44 | NUR ---
SHIFT SUMMARY PT REMAINS INTUBATED, SEDATED AND PARALYZED. VENT SETTINGS AC 24/400/18/100%. AFTER INCREASING PEEP, O2 SATS INCREASED TO 88-90%. PROPOFOL INFUSING AT 25 MCG/KG/MIN, BIS MONITORING 22-32, NIBMEX 2 MCG/KG/HR, TRAIN OF FOUR 4/4. PT c HYPOTENSIVE EPISODE TODAY, MINIMAL RESPONSE TO 2L OF NS, STARTED LEVOPHED, INFUSING AT 9 MCG/MIN AT THIS TIME, MAP 68. HEPARIN IVP AND BOLUS STARTED AFTER POSITIVE LLE DVT. BICARB DRIP INFUSING AT 100ML/HR. TUBE FEEDINGS DECREASED PER DIETARY TO 15 ML/HR, NO RESIDUALS CHECKED PER MD. LUNGS COARSE. DECREASED URINARY OUTPUT TODAY, 150 ML. DENISA CONSULTED AND SAW PT TODAY. NO ORDERS FOR DIALYSIS AT THIS TIME. CHEMBG'S 115-140'S. PER DR BURCIAGA ORDERS, PRONE FOR 12 HOURS IF O2 SATS<88%. REPORT TO ONCOMING NURSE.
--- NOTE | 2019-06-12 20:05 | NUR ---
CARE ASSUMED REPORT RECEIVED, CARE ASSUMED AT 1900. PT INTUBATED, SEDATED AND PARALYZED. LEVEOPHED FOR BLOOD PRESSURE MANAGEMENT. BICARB AND HEPARIN GTT INFUSING. SEE ASSESSMENT/FLOWSHEETS FOR SPECIFICS. PT TOLERATING REPOSITIONING AND ADL'S AT THIS TIME WITHOUT RESPIRATORY DECOMENSATION.
[2019-06-13 03:31] LABS: BASOPHILS ABSOLUTE AUTO 0.03 K/mm3 (0.00-0.23); BASOPHILS PERCENT AUTO 0 % (0-2); EOSINOPHILS ABSOLUTE AUTO 0.22 K/mm3 (0.00-0.68); EOSINOPHILS PERCENT AUTO 2 % (0-6); Hematocrit 41.7 % (33.0-51.0); Hemoglobin 12.4 g/dL (11.5-16.0); IMMATURE GRAN ABSOLUTE AUTO 0.29 K/mm3 (0.00-0.10); IMMATURE GRAN PERCENT AUTO 3 % (0-1); LYMPHOCYTES PERCENT AUTO 14 % (21-46); MONOCYTES ABSOLUTE AUTO 0.79 K/mm3 (0.16-1.47); MONOCYTES PERCENT AUTO 7 % (4-13); Mean Corpuscular HGB 28.4 pg (26.0-34.0); Mean Corpuscular HGB Conc 29.7 g/dL (31.5-36.5); Mean Platelet Volume 12.3 fL (9.1-12.4); NEUTROPHILS ABSOLUTE AUTO 8.06 K/mm3 (1.96-9.15); NEUTROPHILS PERCENT AUTO 74 % (41-73); NRBC ABSOLUTE 0.02 K/mm3 (0.00-0.02); NRBC Auto 0.2 /100 WBC (0.0-0.2); Platelet Count 204 K/mm3 (150-400); RDW Coefficient Variation 19.2 % (11.7-14.2); RDW Standard Deviation 67.5 fL (35.1-46.3); Red Blood Cell Count 4.36 M/mm3 (3.80-5.20); White Blood Cell Count 10.89 K/mm3 (4.00-11.30)
[2019-06-13 03:35] LABS: Mean Corpuscular Volume 96 fL (80-100)
[2019-06-13 03:51] LABS: Albumin, Blood 1.7 g/dL (3.4-5.0); Albumin/Globulin Ratio 0.3 (0.8-1.8); Bilirubin, Total 1.7 mg/dL (0.1-1.0); Bun/Creatinine Ratio 17.6 (12.0-20.0); Calcium, Blood 8.1 mg/dL (8.5-10.1); Creatinine, Blood 5.28 mg/dL (0.40-1.00); Globulin, Blood 4.9 g/dL (2.2-4.0); Magnesium, Blood 1.8 mg/dL (1.6-2.4); Potassium, Blood 5.2 mmol/L (3.5-5.5); Total Protein, Blood 6.6 g/dL (6.4-8.2)
[2019-06-13 04:05] LABS: Phosphorus, Blood 8.6 mg/dL (2.5-4.9)
[2019-06-13 04:08] LABS: PCO2 Arterial 58.8 mmHg (35-45); PO2 Arterial 88.6 mmHg (80-100); pH Blood Arterial 7.22 (7.35-7.45)
[2019-06-13 06:04] LABS: Vancomycin, Random 16.4 ug/mL
--- NOTE | 2019-06-13 06:10 | NUR ---
SUMMARY VENT SETTINGS UNCHANGED THROUGHOUT NIGHT. PT'S O2 SATURATION HAS REMAINED 89-92 THROUGHOUT NIGHT. PT HAS REMAINED SEDATED AND PARALYZED. PT HAS TOLERATED REPOSITIONING. LEVOPHED TITRATED FOR BLOOD PRESSURE. HEPARIN GTT AND BOLUSES GIVEN TO REACH THERAPEUTIC LEVEL. CONTINUOUS FEED INFUSING PER ORDERS. PT NOTED TO HAVE MINIMAL URINE OUTPUT THROUGHOUT SHIFT, SEE I/O FLOWSHEET. TRAIN OF FOUR 3/4 AT THIS TIME, BIS 34. PT HAS NOT BEEN GIVEN A SEDATION VACATION DUE TO RESPIRATORY STATUS.
--- NOTE | 2019-06-13 10:00 | NUR ---
ASSUMPTION OF CARE ASSUMED CARE OF PT AT 0700, PT INTUBATED, SEDATED, AND PARALYZED WITH NIMBEX. VENT SET TO AC 22/400/18/100%, 02 SATURATIONS LOW 90'S. LEVOPHED GTT AT 6. LOW URINE OUTPUT NOTED. DR DINH IN TO SEE PT, CHANGED VENT SETTINGS AC 22/400/15/80%, PT TOLERATED WELL AND MAINTAINED O2 SATURATIONS ABOVE 90% FOR APPROX 1 HOUR AT WHICH TIME VENT WAS PLACED BACK AT 22/400/18/100%. LEVOPHED GTT TITRATED DOWN TO 2. PT PLACED IN FOWLERS AND REVERSE TRENDELENBURG WITH WEDGE PLACED UNDER UPPER THIGHS TO HELP MAINTAIN UPRIGHT POSITION AND INCREASE OXYGENATION. A CALL WAS PLACED TO PTS BROTHERSOURAV, DR DINH UPDATED BROTHER AND DISCUSSED NEED FOR DIALYSIS. OBTAINED CONSENT FOR PICC LINE, DIALYSIS CATHETER, AND CONTINUED FULL CODE STATUS. DR CRAWLEY TO ROOM, UPDATED ON DECREASED URINE OUTPUT.
--- NOTE | 2019-06-13 12:45 | NUR ---
PTS BROTHER AND FAMILY MEMBER IN TO SEE PTFlower DINH UPDATED BROTHER ON DIALYSIS CATHETER PLACEMENT. FAMILY EDUCATED ON CENTRAL LINES, MEDICATIONS AND NEED FOR PARALYSIS. FAMILY TEARFUL AT BEDSIDE.
--- NOTE | 2019-06-13 14:51 | NUR ---
Spiritual care visit conducted. Scripture reading and prayer provided.
--- NOTE | 2019-06-13 15:08 | NUR ---
DR ECHOLS WILL BE IN TO SEE PT AROUND 1600 AFTER DIALYSIS FOR EVALUATION OF POSSIBLE PE.
[2019-06-13 16:26] LABS: Vancomycin, Random 19.1 ug/mL
--- NOTE | 2019-06-13 16:41 | NUR ---
Echocardiogram completed.
--- NOTE | 2019-06-13 17:14 | NUR ---
PT TURNED ON RIGHT SIDE USING LIFT FOR ECHOCARDIOGRAM. PT TOLERATED TURN FOR FIRST 15MIN. THEN PT'S SATS DROPPED TO 83%. PEAK PRESUURE 40-50. PT SUCTIONED WITH SOME CLEAR SECRETIONS. RT AT BEDSIDE. PT SLOWLY REGAINED SATS 89% OVER 10-15MIN. DR DINH AND DR ECHOLS NOTIFIED.
--- NOTE | 2019-06-13 19:23 | NUR ---
SHIFT SUMMARY PT REMAINS INTUBATED, SEDATED AND PARALYZED ON NIMBEX, VENT SETTINGS REMAIN AC 22/400/18/100%. PT 02 SATURATIONS REMAIN LABILE WITH NURSING CARE, DROPPING TO LOW 80'S WITH SLOW RECOVERY, OTHERWISE MAINTAINING 02 90-93%. DIALYSIS CATH PLACED TODAY, DIALYSIS COMPLETED TODAY WITH WASH ONLY. URINE OUTPUT REMAINS LOW, 160ml FOR THIS SHIFT. PICC LINE PLACED THIS SHIFT, REPORT TO SIGNALS OFFICER RN THAT CENRAL LINE TO [facility] CAN BE DC'D. DR ECHOLS CONSULTED AND CONSENT OBTAINED FROM PTS BROTHER FOR DIRECTOR NURSING SERVICE PROCEDURE. DR ECHOLS AND DIRECTOR NURSING SERVICE RN TO ROOM AT 1800, RT NOTIFIED FOR TRANSFER TO DIRECTOR NURSING SERVICE. HEPARIN ON SB AT 1830 AND PT TRANSPORTED FROM ICU WITH 2 DIRECTOR NURSING SERVICE RN'S, 2 UNIT SUPERVISOR'S, AND RT MANAGING AIRWAY. PT TOLERATED TRANSFER TO DIRECTOR NURSING SERVICE TABLE WELL WITH 02 SATS MAINTAINED AT 93%. BEDSIDE REPORT GIVEN TO ONCOMING RN IN DIRECTOR NURSING SERVICE.
--- NOTE | 2019-06-13 23:24 | NUR ---
CARE ASSUMED REPORT RECEIVED, CARE ASSUMED FROM ANGELI RN AND PATRICIA CLAROS. REPORT COMPLETED BEDSIDE AT ASSOCIATE JAVA DEVELOPER. PROCEDURE COMPLETED, PT BACK TO ICU 4. HEPARIN OFF AFTER PROCEDURE. INITIALLY, DR. DINH WANTED TO CHANGE HEPARIN TO SUBQ, BUT SINCE THEN HAS REORDERED HEPARIN GTT PT DOES HAVE A DVT. HEPARIN BOLUS GIVEN. HEPARIN GTT STARTED. LEVOPHED TITRATED OFF. VENT SETTINGS UNCHANGED. PT GIVEN COMPLETE BEDBATH AND TOLERATED WELL. DID DESATURATE TO 88 BUT QUICKLY RECOVERED. PT REMAINS ON NIMBEX DRIP AND PROPFOL. SEE ICU FLOWHSEET FOR TITRATIONS. SEE VITALS FLOWSHEET. SEE ASSESSMENT.
--- NOTE | 2019-06-14 06:03 | NUR ---
SUMMARY SINCE PREVIOUS NOTE, FIO2 TITRATED TO 90%. PT TOLERATED FOR APPROX 2 HOURS UNTIL OXYGEN SATURATIONS DROPPED TO MID 80'S AND SUSTAINED AND FIO2 INCREASED BACK TO 100%. PT HAS TOLERATED TURNS AND CARES. HEPARIN CONTINUES TO INFUSE PER PHARMACY ORDERS. PROPOFOL AND NIMBEX INFUSING. TRAIN OF FOUR 4/4, BIS 35. BLOOD PRESSURE AND HEART RATE STABLE. NO LEVOPHED NEEDED SINCE STOPPED LAST EVENING. URINE OUTPUT MINIMAL THORUGHOUT SHIFT. PT CONTINUES TO GAIN WEIGHT, SEE DAILY WEIGHT CHARTING. DISCUSSED POSSIBLE CHANGE IN NIMBEX CONCENTRATION WITH JEFFERY PHARMACIST TO DECREASE THE AMOUNT OF FLUIDS PATIENT IS RECEIVING AND WAS TOLD IT CAN NOT BE CONCENTRATED FURTHER. BLOOD SUGARS TRENDING DOWN THROUGHOUT NIGHT, MOST RECENT 90. TUBE FEEDING HAS BEEN ON STANDBY SINCE YESTERDAY DUE TO HYPOACTIVE/ABSENT BOWEL TONES RELATED TO NIMBEX DRIP. WILL DISCUSS WITH DAY SHIFT RN TO ADDRESS WITH MODEL MAKER PLASTER ON DAY SHIFT ROUNDING FOR PLAN ON BLOOD SUGAR MANAGEMENT AND NUTRITION. RIGHT GROIN SITE CLEAN, DRY AND INTACT WITH NO SIGN OF HEMATOMA. RIGHT IJ CENTRAL LINE REMOVED. SITE CLEAN, DRY AND INTACT WITH NO SIGNS OF HEMATOMA. SEE ASSESSMENTS, VITALS FLOWSHEETS, ICU FLOWSHEET.
[2019-06-14 07:31] LABS: BASOPHILS ABSOLUTE AUTO 0.02 K/mm3 (0.00-0.23); BASOPHILS PERCENT AUTO 0 % (0-2); EOSINOPHILS ABSOLUTE AUTO 0.15 K/mm3 (0.00-0.68); EOSINOPHILS PERCENT AUTO 1 % (0-6); Hematocrit 38.4 % (33.0-51.0); Hemoglobin 11.3 g/dL (11.5-16.0); IMMATURE GRAN ABSOLUTE AUTO 0.22 K/mm3 (0.00-0.10); IMMATURE GRAN PERCENT AUTO 2 % (0-1); LYMPHOCYTES ABSOLUTE AUTO 1.18 K/mm3 (0.84-5.20); LYMPHOCYTES PERCENT AUTO 11 % (21-46); MONOCYTES PERCENT AUTO 7 % (4-13); Mean Corpuscular HGB 28.5 pg (26.0-34.0); Mean Corpuscular HGB Conc 29.4 g/dL (31.5-36.5); Mean Corpuscular Volume 97 fL (80-100); Mean Platelet Volume 12.6 fL (9.1-12.4); NEUTROPHILS PERCENT AUTO 79 % (41-73); NRBC ABSOLUTE 0.02 K/mm3 (0.00-0.02); NRBC Auto 0.2 /100 WBC (0.0-0.2); Platelet Count 211 K/mm3 (150-400); RDW Coefficient Variation 19.1 % (11.7-14.2); RDW Standard Deviation 68.3 fL (35.1-46.3); Red Blood Cell Count 3.97 M/mm3 (3.80-5.20); White Blood Cell Count 11.17 K/mm3 (4.00-11.30)
[2019-06-14 08:08] LABS: Anion Gap 14 mmol/L (6-16); Blood Urea Nitrogen 80 mg/dL (8-24); Bun/Creatinine Ratio 16.6 (12.0-20.0); CO2, Blood 26 mmol/L (21-32); Calcium, Blood 7.4 mg/dL (8.5-10.1); Chloride, Blood 89 mmol/L (98-108); Creatinine, Blood 4.82 mg/dL (0.40-1.00); Glomerular Filtration Rate 10 (60-); Glucose, Blood 95 mg/dL (70-99); Potassium, Blood 5.1 mmol/L (3.5-5.5); Sodium, Blood 129 mmol/L (136-145)
[2019-06-14 08:11] LABS: Albumin, Blood 1.6 g/dL (3.4-5.0)
[2019-06-14 08:14] LABS: Phosphorus, Blood 8.6 mg/dL (2.5-4.9)
--- NOTE | 2019-06-14 08:30 | NUR ---
PT IS INTUBATED WITH 7.5 ETT. VENT SETTINGS ARE A/C RATE 22, TV 400, PEEP 18, FIO2 100%.
--- NOTE | 2019-06-14 09:58 | NUR ---
DISCUSSED PT'S LOWER SBP WITH DR DINH. WANTS TO RESUME LEVOPHED. ALSO DISCUSSED PT'S TUBE FEEDS AND HE WANTS THEM RESUMED.
[2019-06-14 10:21] LABS: PCO2 Arterial 61.1 mmHg (35-45); PO2 Arterial 73.6 mmHg (80-100)
[2019-06-14 10:22] LABS: pH Blood Arterial 7.22 (7.35-7.45)
--- NOTE | 2019-06-14 10:30 | NUR ---
TUBE FEEDS STARTED. VITAL HP @15ML/HR WITH H20 FLUSH 30ML Q4 HOURS.
--- NOTE | 2019-06-14 11:50 | NUR ---
ATTEMPTED TO TURN PT TO RIGHT SIDE PER MD REQUEST. PT WAS UNABLE TO TOLERATE BY NOT MAINTAINING A HIGH ENOUGH SBP DESPITE GOING UP ON THE LEVOPHED. PT'S BP BECAME MORE STABLE ONCE PT WAS RETURNED TO HER BACK.
--- NOTE | 2019-06-14 13:46 | NUR ---
CONTINUING TO TITRATE NIMBEX DOWN, PT REMAINS SYNCHRONOUS WITH VENT SETTINGS. HR 109, MAP 61, LEVO INFUSING AT 6MCG/MIN. INDEPENDENT LIVING INSTRUCTOR AT BEDSIDE, WILL CONTINUE TO TITRATE LEVO TO KEEP MAP >60.
--- NOTE | 2019-06-14 14:28 | NUR ---
Clinical Visit: Pt is intubated, not responsive. She is acutely ill and full code. She is worsening and multiorgan failure. Spoke with nurse. She states that pt's brother was called by today. He again confirmed FULL code status and would like to continue with life saving measures. Brother is pt's decision maker at this time. Nurse reports that brother will not be in to see the pt today; he may live elsewhere and unable to make the trip. Will follow case and assist where able. It appears sample collector has been updating the family.
--- NOTE | 2019-06-14 15:29 | NUR ---
Spiriutal care visit conducted. Patient is receiving dialysis, RT Ramon is working on respitory capabilities and patient's RN is present in the room so I provided silent prayer from the doorway for patient and family. I will continue to remain available to patient and family
[2019-06-14 18:02] LABS: Vancomycin, Random 15.6 ug/mL
--- NOTE | 2019-06-14 18:26 | NUR ---
TOWARDS THE BEGINNING OF THE DAY, PT DROPPED HER BLOOD PRESSURES, REQUIRING PRESSER SUPPORT. PRESSURES WERE LABILE AND REQUIRED FREQ TITRATION. ATTEMPTED TO TURN PT MULTIPLE TIMES, BUT PT WAS UNABLE TO TOLERATE AND WOULD DROP HER BLOOD PRESSURE, EVEN WITH INCREASING THE LEVOPHED. PT WAS ABLE TO TOLERATE A SLIGHT TURN WITH PILLOWS THIS EVENING. PT WAS ABLE TO RECEIVE DIALYSIS AND WAS ABLE TO HAVE 3.5L FLUID REMOVED. NIBEX WAS STOPPED IN THE AFTERNOON AND PT APPEARED TO HAVE TOLERATED ONLY SEDATION WELL. RT MADE MULTIPLE ADJUSTMENTS TO VENT AND AT END OF SHIFT HAS THE PT ON BI-LEVEL, RATE OF 20, PEEP 30/18, PS7, FIO2 75%. PT HAS HAD SLIGHT IMPROVEMENT WITH MAINTAINING HER SATS AFTER DIALYSIS AND VENT ADJUSTMENTS. DUE TO PATIENTS UNSTABILITY, WE WERE UNABLE TO PERFORM A SEDATION HOLIDAY. INITIAL PLANS TODAY WERE TO PRONE PT AFTER DIALYSIS, HOWEVER WITH PT'S IMPROVEMENT, IT WAS DECIDED TO HOLD OFF ON PRONING THE PT AND MONITOR. PT'S URINARY OUTPUT WAS VERY MINIMAL THIS SHIFT. PTT CONTINUES TO BE SUB-THERAPUTIC AND WILL CONTINUE FOLLOW PHARMACY'S ADJUSTMENTS.
--- NOTE | 2019-06-14 19:15 | NUR ---
ASSESSMENT/ASSUMED CARE PT INTUBATED AND ON [facility] VENT. SEDATED WITH PROPOFOL. LUNGS COARSE AND DECREASED THROUGHTOUT. VENT SETTINGS BI-LEVEL RATE 20 PEEP 30/18 PS 7 FIO2 75%. SUCTIONED YELLOW PLUGGS AND THIN CLEAR SECREATIONS VIA ET TUBE. RT LAVAGED AND SUCTIONED BROWN PLUGGS. HEART RATE 100. BP STABLE ON LEVOPHED AT 8 MCQ/MIN. GENERAL EDEMA NOTED. BT ABSENT. TUBE FEED AT GOAL RATE OF 15 ML/HR WITH H2O AT 30 ML Q4HR. RESIDUAL ZERO. PICC LINE TO RIGHT UPPER ARM DRSG INTACT. PROPOFOL AT 30 MCQ/KG/MIN, HEPARIN AT 25 UNITS/KG/HR AND LEVOPHED AT 8 MCQ/MIN. NS AND VANCOMYCIN STARTED. LEFT IJ WITH DIALYSIS CATH CLAMPED, DRSG INTACT. GARCIA CATH PATENT WITH DARK LILIANE URINE IN TUBE. RIGHT GROIN SITE STABLE, NO BLEEDING OR HEMATOMA NOTED.
--- NOTE | 2019-06-14 20:00 | NUR ---
REPOSITIONED TURNED PT ON RIGHT SIDE FOR RT TO DO CPT THAN TURNED PT TO LEFT WITH WEDGE AND PILLOWS TO GET OFF COCCYX AND BACK.
--- NOTE | 2019-06-14 22:11 | NUR ---
FENTANYL RT WORKING WITH VENT. SEDATION WITH PROPOFOL INCREASED TO 40 MCQ/KG/MIN. MED WITH FENTANYL 50 MCQ TO ASSIST WITH PT TOLATING VENT SETTING ON BI-LEVEL
--- NOTE | 2019-06-14 23:49 | NUR ---
REASSESSMENT PT CONT ON [facility] VENT WITH BI-LEVEL SETTINGS. SPO2 97% AT THIS TIME. LUNGS CONT COARSE AND DECREASED. PT MED WITH TYLENOL AFTER BATH FOR TEMP 100.3, TEMP NOW 99.7. PT UNCOVERED. HEART RATE REGULAR. BP STABLE, LEVOPHED DECREASED TO 7 MCQ/MIN. HEPARIN INCREASED TO 27 UNITS/KG/HR AT 2300. BLOOD GLUCOSE 111, NO INSULIN GIVEN. RESIDUAL 60ML REFED. TUBE FEED AT GOAL. CONT TO MONITOR
--- NOTE | 2019-06-15 00:29 | NUR ---
PAIN MEDS RESP RATE 30'S, SUTIONED ET TUBE NO SECRECTIONS OBTAINED. MED WITH FENTANYL 50 MCQ. RT CHANGED VENT SETTINGS TO BI-LEVEL RATE 20 PEEP 30/15 PS 12 FIO2 75%. RESP RATE DOWN TO 21.
[2019-06-15 03:07] LABS: HBSAG SCREEN Negative (Negative); HEP A AB, IGM Negative (Negative); HEP B CORE AB, IGM Negative (Negative); HEP C VIRUS AB 0.2 (0.0-0.9)
[2019-06-15 04:08] LABS: PCO2 Arterial 54.7 mmHg (35-45); PO2 Arterial 64.3 mmHg (80-100); pH Blood Arterial 7.31 (7.35-7.45)
--- NOTE | 2019-06-15 04:27 | NUR ---
PAIN MEDS INCREASED RESP RATE TO 30'S, MED WITH FENTANYL 50 MCQ
--- NOTE | 2019-06-15 05:31 | NUR ---
SHIFT SUMMARY PT CONT ON [facility] VENT WITH BI-LEVEL SETTINGS RATE 20 PEEP 30/18 PS 12 FIO2 75%. LUNGS COARSE AND DECREASED. CPT DONE TO LEFT LOBES TWICE DURING THE SHIFT. SUCTIONED THICK PLUGGS VIA ET TUBE. LARGE AMTS CLEAR ORAL SECRECTIONS SUCTIONED. HEART RATE REGULAR. BP STABLE ON LEVOPHED. LEVOPHED TITRATED DOWN FORM 8 MCQ/MIN TO 5 MCQ/MIN DURING THE NIGHT. DIALYSIS CATH TO LEFT IJ CLAMPED, DRSG INTACT. PICC LINE TO RIGHT UPPER ARM DRSG INTACT. PROPOFOL INCREASED TO 40 MCQ/KG/MIN FOR VENT TOLERANCE DURING THE NIGHT AND MED WITH FENTANYL 50 MCQ. PT TURNED Q2HR. REPORT TO ON COMING NURSE
[2019-06-15 05:34] LABS: BASOPHILS ABSOLUTE AUTO 0.02 K/mm3 (0.00-0.23); BASOPHILS PERCENT AUTO 0 % (0-2); EOSINOPHILS ABSOLUTE AUTO 0.16 K/mm3 (0.00-0.68); EOSINOPHILS PERCENT AUTO 2 % (0-6); Hemoglobin 11.2 g/dL (11.5-16.0); IMMATURE GRAN ABSOLUTE AUTO 0.25 K/mm3 (0.00-0.10); IMMATURE GRAN PERCENT AUTO 2 % (0-1); LYMPHOCYTES ABSOLUTE AUTO 1.17 K/mm3 (0.84-5.20); LYMPHOCYTES PERCENT AUTO 11 % (21-46); MONOCYTES ABSOLUTE AUTO 0.88 K/mm3 (0.16-1.47); MONOCYTES PERCENT AUTO 8 % (4-13); Mean Corpuscular HGB 28.6 pg (26.0-34.0); Mean Corpuscular HGB Conc 30.3 g/dL (31.5-36.5); Mean Platelet Volume 12.4 fL (9.1-12.4); NEUTROPHILS ABSOLUTE AUTO 8.27 K/mm3 (1.96-9.15); NEUTROPHILS PERCENT AUTO 77 % (41-73); NRBC ABSOLUTE 0.04 K/mm3 (0.00-0.02); NRBC Auto 0.4 /100 WBC (0.0-0.2); Platelet Count 247 K/mm3 (150-400); RDW Coefficient Variation 18.6 % (11.7-14.2); RDW Standard Deviation 63.9 fL (35.1-46.3); Red Blood Cell Count 3.92 M/mm3 (3.80-5.20); White Blood Cell Count 10.75 K/mm3 (4.00-11.30)
[2019-06-15 05:37] LABS: Mean Corpuscular Volume 94 fL (80-100)
[2019-06-15 05:54] LABS: Albumin, Blood 1.6 g/dL (3.4-5.0); Albumin/Globulin Ratio 0.3 (0.8-1.8); Bilirubin, Total 1.5 mg/dL (0.1-1.0); Bun/Creatinine Ratio 14.5 (12.0-20.0); Calcium, Blood 7.6 mg/dL (8.5-10.1); Creatinine, Blood 4.06 mg/dL (0.40-1.00); Globulin, Blood 5.2 g/dL (2.2-4.0); Magnesium, Blood 1.7 mg/dL (1.6-2.4); Phosphorus, Blood 7.2 mg/dL (2.5-4.9); Potassium, Blood 4.2 mmol/L (3.5-5.5); Total Protein, Blood 6.8 g/dL (6.4-8.2)
--- NOTE | 2019-06-15 11:02 | NUR ---
PT RECEIVING VEST CPT AND DIALYSIS AT THIS TIME. TITRATING LEVO TO KEEP MAP >60. SPO2 90-91%, VENT SETTINGS UNCHANGED. PT TOLERATED REPOSITIONING WELL WITHOUT DESAT AND WITH MINIMAL AGITATION THAT RESOLVED IMMEDIATELY AFTER REPOSITION.
--- NOTE | 2019-06-15 11:25 | NUR ---
Spiritual care phone call conducted. I called patient's brother, Sterling to check in on him. I asked about coping skills and resources. He tells me about taking things one step at a time. Working through all the details of his mother's and watching for cues from the doctors and nurses for his sister has been rough for him, but he has a strong network of friends that are helping him stay grounded and centered. He admits that he did not have a good relationship with the patient and so this makes it doubley challenging. He says that he wanted to make some "last ditch efforts" medically to see if she will pull through but now is open to whatever the doctors feel is best. I will continue to remain available to patient and family.
[2019-06-15 13:00] LABS: Triglycerides 1522 mg/dL (30-160)
[2019-06-15 13:36] LABS: Vancomycin, Random 17.2 ug/mL
--- NOTE | 2019-06-15 13:59 | NUR ---
DIALYSIS COMPLETED, PT TOLERATED WELL, 4L FLUID REMOVED. PT TOLERATING CPT, SPO2 >90% ON 70% FIO2, OTHER VENT SETTINGS UNCHANGED. HEPARIN DOSE ADJUSTED PER PHARMACY. PALLIATIVE CARE MEETING HELD WITH PT'S BROTHER, PLAN IS TO MAKE CONTACT WITH PT'S OLDEST SON, ANA AND PROVIDE HIM AN OPPORTUNITY TO GIVE HIS INPUT PT'S LEGAL NEXT OF KIN. AFTER THESE HAVE BEEN ACCOMPLISHED, PLAN IS TO MAKE PT COMFORT CARE DEPENDING ON ANA'S WISHES. DR. DINH UPDATED ON MEETING WITH BROTHER.
--- NOTE | 2019-06-15 16:22 | NUR ---
1600: PT'S BROTHER AND BOTH SONS AT BEDSIDE, DISCUSSED PLAN OF CARE WITH PALLIATIVE CARE NURSE, PLANS TO EXTUBATE AND MAKE COMFORT CARE REMAIN, FAMILY AWARE OF SITUATION AND EXPECTATIONS. PALLIATIVE CARE, SUPERVISOR PRE WAVE, AND REGISTERED NURSE CARDIAC TELEMETRY AT BEDSIDE WITH FAMILY. 1620: PT EXTUBATED, COMFORT ORDERS INITIATED, ATIVAN AND FENTANYL ADMINISTERED FOR COMFORT. DRIPS OFF. WILL MEDICATE FOR COMFORT.
--- NOTE | 2019-06-15 17:07 | NUR ---
TIME OF , 1647. PHYSICIANS AND DONOR LINE NOTIFIED, OK TO RELEASE BODY TO [facility] PER DONOR LINE. PICC LINE AND GARCIA REMOVED, ICE TO EYES. HOME CALLED FOR PICKUP.
--- NOTE | 2019-06-15 17:34 | NUR ---
PT'S MONETARY BELONGINGS REMOVED FROM SAFE AND SENT HOME WITH PATIENT'S BROTHER, SOURAV. SEALED BAG OPENED AND LISTED CONTENTS VERIFIED WITH PT'S BROTHER AT TIME OF RETURN.
--- NOTE | 2019-06-15 17:41 | NUR ---
Clinical Visit: Met family in pt's room. Reviewed information. There are both of her sons present, in addition to the pt's brother. All are expressing grief. Support given to family, instruction given. Family is in agreement with withdrawing care and making the pt comfortable.
--- NOTE | 2019-06-15 18:03 | NUR ---
Present with both sons and pt's brother throughout extubation and final breath. Prayer provided at bedside and gentle residential substance abuse counselor/comfort given. Eldest son and Hannah's brother expressed tearful gratitude for compassionate care by [facility] staff. Nursing did a great job keeping Hannah peaceful. Youngest son fluctuated between sorrow and loud bursts of anger. Hannah passed peacefully 1647.
--- NOTE | 2019-06-15 18:36 | NUR ---
PT TO MORTUARY AT 1835
== END 2019-06-15 16:48 | DRG 870 ==
LOC: ER 15:07 → ICUW 15:08 → MEDS 15:08 → ICUW 20:45 → MEDS 21:01 → ICUW 06-04 21:58 → ICUE 06-05 08:10 → ICUW 06-06 19:00 → ICUE 06-10 18:34
PROVIDERS: Family Medicine; Hospitalist; Internal Medicine; Internal Medicine Critical Care Medicine; Internal Medicine Pulmonary Disease; Pharmacist; ADMIT Internal Medicine
PROC: 5A1955Z Respiratory Ventilation, Greater than 96 Consecutive Hours (ICD-10-PCS; 2019-06-03)
PROC: 02HV33Z Insertion of Infusion Device into Superior Vena Cava, Percutaneous Approach (ICD-10-PCS; principal; 2019-06-05)
PROC: 3E043XZ Introduction of Vasopressor into Central Vein, Percutaneous Approach (ICD-10-PCS; 2019-06-05)
PROC: 05HN33Z Insertion of Infusion Device into Left Internal Jugular Vein, Percutaneous Approach (ICD-10-PCS; 2019-06-13)
PROC: 5A1D70Z Performance of Urinary Filtration, Intermittent, Less than 6 Hours Per Day (ICD-10-PCS; 2019-06-13)
PROC: B31T1ZZ Fluoroscopy of Left Pulmonary Artery using Low Osmolar Contrast (ICD-10-PCS; 2019-06-15)
PROC: B31S1ZZ Fluoroscopy of Right Pulmonary Artery using Low Osmolar Contrast (ICD-10-PCS; 2019-06-15)
DX: A41.02 Sepsis due to Methicillin resistant Staphylococcus aureus (principal); N17.0 Acute kidney failure with tubular necrosis; J15.212 Pneumonia due to Methicillin resistant Staphylococcus aureus; R65.21 Severe sepsis with septic shock; I50.32 Chronic diastolic (congestive) heart failure; F33.9 Major depressive disorder, recurrent, unspecified; E66.2 Morbid (severe) obesity with alveolar hypoventilation; E87.2 Acidosis; N39.0 Urinary tract infection, site not specified; Z68.44 Body mass index [BMI] 60.0-69.9, adult; E87.1 Hypo-osmolality and hyponatremia; I13.0 Hypertensive heart and chronic kidney disease with heart failure and stage 1 through stage 4 chronic kidney disease, or unspecified chronic kidney disease; J98.11 Atelectasis; Z51.5 Encounter for palliative care; R32 Unspecified urinary incontinence; Z59.0 Homelessness; L68.0 Hirsutism; M16.11 Unilateral primary osteoarthritis, right hip; B37.2 Candidiasis of skin and nail; F17.210 Nicotine dependence, cigarettes, uncomplicated; Z91.19 Patient's noncompliance with other medical treatment and regimen; I46.9 Cardiac arrest, cause unspecified; Z79.84 Long term (current) use of oral hypoglycemic drugs; Z59.8 Other problems related to housing and economic circumstances; E87.70 Fluid overload, unspecified; E83.39 Other disorders of phosphorus metabolism; N18.2 Chronic kidney disease, stage 2 (mild); B96.1 Klebsiella pneumoniae [K. pneumoniae] as the cause of diseases classified elsewhere; E11.22 Type 2 diabetes mellitus with diabetic chronic kidney disease
CPT/HCPCS: 31500; 31720; 36014; 36015; 36415; 36556; 36569; 36600; 51702; 71045; 73502; 75743; 75774; 76770; 76937; 80047; 80048; 80053; 80069; 80074; 80202; 81001; 82330; 82550; 82803; 82947; 83605; 83735; 83880; 84100; 84478; 84484; 84550; 85007; 85014; 85018; 85025; 85027; 85610; 85730; 86140; 86317; 87070; 87077; 87086; 87147; 87186; 87205; 92950; 93005; 93010; 93308; 93321; 93970; 94002; 94003; 94640; 94667; 94668; 94762; 96365; 96366; 96372; 96375; 96376; 99285-25; C1751; C1769; C1894; C9113; G0378; J0692; J0696; J1265; J1644; J1940; J2060; J2250; J2310; J2704; J2765; J3010; J3370; J3475; J7030; J7040; J7050; J7060; J7070; J7120; Q9967